=== PATIENT | male | born 1965 | race Caucasian/White ===

== ENCOUNTER → 2020-05-13 12:54 | Outpatient (BNVA) | payer OTHER, SELFPAY | PROVIDERS: PCP Physician Assistant Medical; Visit Provider Nurse Practitioner Family ==

== ENCOUNTER 2020-07-05 09:04 | Day surgery (SDC) | payer OTHER, SELFPAY ==
[2020-07-02 09:55] VITALS: BMI 40.6
--- NOTE | 2020-07-04 09:37 | P.CONAN_ITS ---
Documented by User: Venice Mcbride 07/04/20 09:37 HPI - Anesthesia Eval Consult details Narrative: 54yo M for Upper Endoscopy and Colonoscopy [facility] Past Medical History Medical History Elevated cholesterol GERD (gastroesophageal reflux disease) Sleep apnea Family History Family History Mother Breast cancer Paternal Uncle Prostate cancer Surgical History Surgical History H/O colonoscopy Hx of appendectomy Social History Social History Household Members: Spouse and Children Alcohol intake: never Smoking Status: Never smoker Use of substances other than those prescribed or required for medical reasons: No Advance Directives Information Provided: No Current occupational status: [employer] Allergies Allergy/AdvReac Type Severity Reaction Status Date / Time No Known Allergies Allergy Verified 07/05/20 09:09 Home Medications Medication Instructions Recorded Confirmed Last Taken Type aspirin 81 mg tablet,delayed 81 mg PO DAILY 05/13/20 07/02/20 06/30/20 07:30 History release atorvastatin 40 mg tablet 40 mg PO DAILY 05/13/20 07/02/20 Unknown History Exam Exam Date and Time: July 04, 2020 0937 Height,Weight and Vital Signs: Height 5 ft 9 in Weight 124.738 kg Assessment and Plan Assessment Anesthesia Assessment: Chart Reviewed Documented by User: Ileana Peters 07/05/20 09:42 [facility] Past Medical History Medical History Elevated cholesterol GERD (gastroesophageal reflux disease) Sleep apnea Family History Family History Mother Breast cancer Paternal Uncle Prostate cancer Surgical History Surgical History H/O colonoscopy Hx of appendectomy Social History Social History Household Members: Spouse and Children Alcohol intake: never Smoking Status: Never smoker Use of substances other than those prescribed or required for medical reasons: No Advance Directives Information Provided: No Current occupational status: retired Meds Allergies Allergy/AdvReac Type Severity Reaction Status Date / Time No Known Allergies Allergy Verified 07/05/20 09:09 Home Medications Medication Instructions Recorded Confirmed Last Taken Type aspirin 81 mg tablet,delayed 81 mg PO DAILY 05/13/20 07/02/20 06/30/20 07:30 History release atorvastatin 40 mg tablet 40 mg PO DAILY 05/13/20 07/02/20 Unknown History Exam Airway Mallampati Class: III TM Dist: >3cm Neck ROM: Full Loose/Missing/Broken Teeth: No Heart: RRR Lungs: CTA Assessment and Plan Assessment Anesthesia Assessment: Anesthesia Plan Discussed and Chart Reviewed Final Anesthetic Review NPO: Yes ASA Class: II Final Preanesthetic Review: Consent Obtained/Reviewed and Anes Risks/Benef Reviewed Patient Risk: Low Procedure Risk: Low Anesthetic Plan Anesthetic Plan: MAC: Disposition: Standard PACU
[2020-07-05 09:19] VITALS: BP 121/85; PULSE 70; RESP 20; TEMP 36.7; O2SAT 96
[2020-07-05] MEDS: Lactated Ringers 1,000 ML 100 ML IVCONT (09:36)
--- NOTE | 2020-07-05 10:08 | W.PM.OPN ---
Operative Note Operative Note Date of Service: 07/05/20 Narrative: Pre-op diagnosis: Colon cancer screening, Positive FIT test, GERD Post-op diagnosis: other (GERD, hiatal hernia, esophageal polyp, gastritis, Colon polyps, diverticulosis, hemorrhoids) Procedure: FLEXIBLE TRANSORAL UPPER GASTROINTESTINAL ENDOSCOPY WITH BIOPSIES AND COLONOSCOPY TO CECUM WITH BIOPSIES AND SNARE POLYPECTOMY Consent: Indications for the procedure and potential complications of bleeding, perforation, reaction to medications and missed diagnosis were discussed with the patient and informed consent was obtained. Instrument: Olympus GIF H 190 mid size upper endoscope Monitoring: Vital signs and clinical assessment, continuous EKG monitoring, Pulse oximetry, Carbon Dioxide monitoring and blood pressure monitoring were done throughout the procedure. Procedure: The patient was placed in the left lateral decubitis position and pre-procedure medications were administered and a bite block was placed. The endoscope was inserted into the mouth and advanced under direct vision to the third part of duodenum. A careful inspection was made as the upper endoscope was withdrawn including a retroflexed examination of the proximal stomach; Findings and interventions are described below. Findings: Larynx: Edema of arytenoid cartilages Esophagus: A 7-8 mm benign appearing polyp/nodule in the mid esophagus - removed with a cold bx. GE junction at 39 cms, small hiatal hernia 39 to 40 cms. No esophagitis or [place] Stomach: Moderate diffuse gastric erythema with nodular appearing gastric mucosa. Biopsies were obtained from the body and antrum. Grade 2 flap valve on retroflexed examination of the cardia. Duodenum: Normal bulb and descending duodenum Intervention: Biopsies as noted above COLONOSCOPY PROCEDURE NOTE Consent: Indications for the procedure and potential complications of bleeding, perforation, reaction to medications and missed diagnosis were discussed with the patient and informed consent was obtained. Instrument: Olympus CF H 190 L variable stiffness adult colonoscope Monitoring: Vital signs and clinical assessment, intermittent blood pressure monitoring, continuous EKG monitoring, Pulse oximetry and Carbon Dioxide monitoring were done throughout the procedure. Colon withdrawl time was 25 minutes. Procedure: The patient was placed in the left lateral decubitis position and pre-procedure medications were administered. After a digital rectal examination of the ano-rectum, the video colonoscope was inserted into the rectum and advanced through the colon to the cecum. The colonoscope was slowly withdrawn in a retrograde panoramic fashion and the colon mucosa was carefully examined including a retroflexed view of the rectum. Findings and interventions are described below. Procedure Difficulty: Without difficulty Findings: Terminal Ileum: Distal 10 cm was examined and scattered aphthoid ulcers noted - biopsies were obtained Cecum: 3-4 mm diminutive appearing polyp next to appendiceal orifice removed with the cold biopsyl Ascending Colon: Patchy erythema with scattered aphthoid ulcers - random biopsies were obtained Transverse Colon: A 10-12 mm sessile polyp removed with hot snare Descending Colon: Moderate diverticular Sigmoid Colon: Severe diverticulosis with luminal narrowing Rectum: A 2.5 cms pedunculated polyp (on a short pedicle) removed with a hot snare. A 2nd 4-5 mm sessile polyp removed with the cold biopsy. Ano-rectum: Moderate internal hemorrhoids Colon preparation: Excellent to good after some irrigation Impression and Post Procedure Diagnosis: Impression and Post Procedure Diagnosis: Endoscopy Findings: LARYNX: Changes suggestive of LPRD ESOPHAGUS: A 7-8 mm benign appearing polyp/nodule in the mid esophagus - likely squamous papilloma. GE junction at 39 cms, small hiatal hernia 39 to 40 cms. STOMACH: Nodular gastritis Colonoscopy Findings: Three polyps removed Scattered aphthoid ulcers in the TI - ? Crohn's disease versus NSAID use Random biopsies were obtained from the TI, right and left colon to rule out IBD/microscopic colitis Moderate to severe diverticulosis seen in the left colon Moderate hemorrhoids on retroflexed exam. Plan: Await pathology results Patient has an appointment on 07/09/20 in the GI Clinic with Sunita Castano FNP-BC. Repeat Colonoscopy interval based on path results - in 1-2 years if rectal polyp is adenomatous to check polypectomy site and 10 years if polyps are hyperplastic. Above findings were reviewed with the patient and GERD, colon polyps and diverticulosis handouts were given in the discharge area Surgeon: Cathy Perez MD Anesthesia: MAC (Dr. Peters) Export Administrator: Roman Lee Estimated blood loss (mL): 0 Pathology: other (A. Gastric antrum, B. gastric body, C. esophageal polyp, D. cecal polyp x1, E. TI bx, F. RT colon, G. Left colon, H. SC polyp, I. Rectal polyps.) Condition: stable Disposition: PACU
--- NOTE | 2020-07-05 10:09 | MHC.SHP ---
Pre-Procedural Eval Section A The patient is an INPATIENT: No The History & Physical has been completed within 30 days and I have reviewed it.: No Section B Chief Complaint: Screening, GERD Relevant Family History (Specify if Yes): No Relevant Social History: None Present Medications: see Short Stay Collaborative assessment Medical History: Significant History (GERD, sleep apnea) History of Previous Operations: Relevant previous surgery/procedure and date(s) (History of colonoscopy, status post appendectomy) Allergies: Allergies Allergy/AdvReac Type Severity Reaction Status Date / Time No Known Allergies Allergy Verified 07/05/20 09:09 Review of Systems Sugical H&P ROS: Negative: Constitution, Cardiovascular and Respiratory and Yes, Specify: Gastrointestinal (GERD) Exam Surgical H&P Exam: Normal: Heart, Normal: Lungs, Normal: Extremities and Normal: Abdomen Plan Diagnosis/Plan: Unchanged I have reviewed the history and physical and performed a pertinent physical examination on my patient. No changes have occurred unless specified.
[2020-07-05 11:10] VITALS: BP 128/80; PULSE 69; RESP 18; TEMP 36.2; O2SAT 99
[2020-07-05 11:37] VITALS: BP 128/82; PULSE 64; RESP 18; O2SAT 97
== END 2020-07-05 15:38 | disposition home or self-care (01) ==
PROVIDERS: PCP Physician Assistant Medical; Visit Provider Internal Medicine Gastroenterology
PROC: (CPT 45385; principal; 2020-07-05 10:00)
DX: Z12.11 Encounter for screening for malignant neoplasm of colon (principal); D12.5 Benign neoplasm of sigmoid colon; D12.8 Benign neoplasm of rectum; K63.5 Polyp of colon; K64.8 Other hemorrhoids; K57.30 Diverticulosis of large intestine without perforation or abscess without bleeding; K52.9 Noninfective gastroenteritis and colitis, unspecified; K21.9 Gastro-esophageal reflux disease without esophagitis; K29.50 Unspecified chronic gastritis without bleeding; D13.0 Benign neoplasm of esophagus; K44.9 Diaphragmatic hernia without obstruction or gangrene; G47.33 Obstructive sleep apnea (adult) (pediatric); Z79.82 Long term (current) use of aspirin; Z79.899 Other long term (current) drug therapy; Z99.89 Dependence on other enabling machines and devices
CPT/HCPCS: 45385; 45380; 43239; 88305; 88341; 88342

== ENCOUNTER → 2020-07-09 13:42 | Outpatient (BNVA) | payer OTHER, SELFPAY | PROVIDERS: PCP Physician Assistant Medical; Visit Provider Nurse Practitioner Family ==

== ENCOUNTER → 2020-07-12 12:34 | Outpatient (BNVA) | payer OTHER, SELFPAY | PROVIDERS: PCP Physician Assistant Medical; Visit Provider Nurse Practitioner Family | DX: R19.7 Diarrhea, unspecified (principal) ==

== ENCOUNTER 2020-07-16 14:27 | Outpatient (REF) | payer OTHER, SELFPAY ==
[2020-07-16 16:59] LABS: C Reactive Protein 0.44 mg/dL (< or = 0.50)
[2020-07-16 17:21] LABS: Erythrocyte Sedimentation Rate 8 MM/HR (0-15)
[2020-07-24 08:20] LABS: Prometheus IBD SGI SEE SEPERATE REPORT
[2020-07-24 21:01] LABS: Calprotectin, Fecal 374 mcg/g
== END 2020-07-16 14:28 | disposition home or self-care (01) ==
LOC: HO.HMGCLDS 14:27
PROVIDERS: PCP Physician Assistant Medical; Visit Provider Nurse Practitioner Family
DX: R19.7 Diarrhea, unspecified (principal)
CPT/HCPCS: 36415; 81479; 82397; 83520; 83993; 85652; 86140; 88346; 88350

== ENCOUNTER → 2020-07-24 12:57 | Outpatient (BNVA) | payer OTHER, SELFPAY | PROVIDERS: PCP Physician Assistant Medical; Visit Provider Nurse Practitioner Family ==

== ENCOUNTER → 2020-08-27 13:14 | Outpatient (BNVA) | payer OTHER, SELFPAY | PROVIDERS: Visit Provider Nurse Practitioner Family ==

== ENCOUNTER → 2020-10-02 13:35 | Outpatient (BNVA) | payer OTHER, SELFPAY | PROVIDERS: PCP Physician Assistant Medical; Visit Provider Nurse Practitioner Family ==

== ENCOUNTER → 2021-01-03 12:54 | Outpatient (BNVA) | payer OTHER, SELFPAY | PROVIDERS: PCP Physician Assistant Medical; Referring Provider Physician Assistant Medical; Visit Provider Nurse Practitioner Family ==

== ENCOUNTER → 2022-05-08 08:06 | Outpatient (BNVA) | payer OTHER, SELFPAY | PROVIDERS: PCP Physician Assistant Medical; Visit Provider Nurse Practitioner Family | DX: Z13.89 Encounter for screening for other disorder (principal) ==

== ENCOUNTER 2022-08-28 07:37 | Day surgery (SDC) | payer OTHER, SELFPAY ==
[2022-08-26 12:56] VITALS: BMI 40.2
--- NOTE | 2022-08-27 12:12 | HO.ANESPROP2 ---
Documented by User: Venice Mcbride NP 08/27/22 12:12 HPI - Anesthesia Eval Consult details Narrative: 56yo M for Colonoscopy [facility] Active Problems Active Problems: All Active Problems (Updated 10/11/20 @ 20:20 by Sunita Castano [facility]) Crohn disease (Acute) Tubulovillous adenoma (Acute) Past Medical History Medical History Crohn disease Elevated cholesterol GERD (gastroesophageal reflux disease) Sleep apnea Tubulovillous adenoma Family History Family History Mother Breast cancer Paternal Uncle Prostate cancer Surgical History Surgical History H/O colonoscopy History of esophagogastroduodenoscopy (EGD) Hx of appendectomy Social History Social History Household Members: Spouse and Children Alcohol intake: never Patient Tobacco Use Status: Never used Tobacco Are you DNR?: No Advance Directives: No Advance Directives Information Provided: Yes Nutrition Risks: No Nutritional Risk Current occupational status: retired [employer] Allergies Allergy/AdvReac Type Severity Reaction Status Date / Time No Known Allergies Allergy Verified 05/08/22 08:11 Home Medications Medication Instructions Recorded Confirmed Last Taken Type atorvastatin 40 mg tablet 40 mg PO DAILY 05/13/20 07/02/20 08/26/22 History Exam Exam Date and Time: August 27, 2022 1212 Height,Weight and Vital Signs: Height 5 ft 9 in Weight 123.377 kg Assessment and Plan Assessment Anesthesia Assessment: Chart Reviewed Documented by User: Bradley Abarca MD 08/28/22 08:38 [facility] Past Medical History Medical History Crohn disease Elevated cholesterol GERD (gastroesophageal reflux disease) Sleep apnea Tubulovillous adenoma Family History Family History Mother Breast cancer Paternal Uncle Prostate cancer Family history of problems with anesthesia: No Surgical History Surgical History H/O colonoscopy History of esophagogastroduodenoscopy (EGD) Hx of appendectomy History of Problems with Anesthesia: No Social History Social History Household Members: Spouse and Children Alcohol intake: never Patient Tobacco Use Status: Never used Tobacco Are you DNR?: No Advance Directives: No Advance Directives Information Provided: Yes Nutrition Risks: No Nutritional Risk Current occupational status: retired [employer] Allergies Allergy/AdvReac Type Severity Reaction Status Date / Time No Known Allergies Allergy Verified 05/08/22 08:11 Home Medications Medication Instructions Recorded Confirmed Last Taken Type atorvastatin 40 mg tablet 40 mg PO DAILY 05/13/20 07/02/20 08/26/22 History Exam Airway Mallampati Class: II TM Dist: <=3cm Neck ROM: Full Loose/Missing/Broken Teeth: No Heart: ok Lungs: ok Assessment and Plan Assessment Anesthesia Assessment: Anesthesia Plan Discussed Final Anesthetic Review Family History of Problems with Anesthesia: No History of Problems with Anesthesia: No NPO: Yes ASA Class: III Final Preanesthetic Review: No Changes in Pt Med Stat, Meds/Allgs Chart Reviewed, Consent Obtained/Reviewed and Anes Risks/Benef Reviewed Patient Risk: Intermediate Procedure Risk: Low Anesthetic Plan Anesthetic Plan: MAC: and Agree w/ Assess. and Plan Disposition: Standard PACU
[2022-08-28 07:41] VITALS: BP 150/88; PULSE 61; RESP 20; TEMP 36.3; O2SAT 97
[2022-08-28] MEDS: Lactated Ringers 1,000 ML 100 ML IVCONT (08:09)
--- NOTE | 2022-08-28 09:20 | MHC.SHP ---
Pre-Procedural Eval Section A Date of Service: 08/28/22 The patient is an INPATIENT: No The History & Physical has been completed within 30 days and I have reviewed it.: No Section B Chief Complaint: Screening,Crohn's disease, unspecified, without co Relevant Family History (Specify if Yes): No Present Medications: see Short Stay Collaborative assessment Medical History: Significant History (Crohn disease Elevated cholesterol GERD (gastroesophageal reflux disease) Sleep apnea Tubulovillous adenoma) History of Previous Operations: Relevant previous surgery/procedure and date(s) (H/O colonoscopy History of esophagogastroduodenoscopy (EGD) Hx of appendectomy) Allergies: Allergies Allergy/AdvReac Type Severity Reaction Status Date / Time No Known Allergies Allergy Verified 05/08/22 08:11 Review of Systems Sugical H&P ROS: Negative: Constitution, Cardiovascular, Respiratory and Gastrointestinal Exam Surgical H&P Exam: Normal: Heart, Normal: Lungs, Normal: Extremities and Normal: Abdomen Plan Diagnosis/Plan: Unchanged I have reviewed the history and physical and performed a pertinent physical examination on my patient. No changes have occurred unless specified. Time Spent With Patient Time: Total time managing care of this patient today ____ minutes.
--- NOTE | 2022-08-28 09:27 | W.PM.OPN ---
Operative Note Operative Note Date of Service: 08/28/22 Narrative: COLONOSCOPY TILL CECUM WITH BIOPSIES Pre-op diagnosis: Colon cancer screening, follow-up of colon polyps, Crohn's disease (diagnosed in 06/2020) Post-op diagnosis:? Colon polyp, diverticulosis, hemorrhoids, mild patchy colitis Endoscopist:? Cathy Perez MD Anesthesia:?MAC Consent: Indications for the procedure and potential complications of bleeding, perforation, reaction to medications and missed diagnosis were discussed with the patient and informed consent was obtained. Instrument: Olympus CF H 190 L variable stiffness adult colonoscope Monitoring: Vital signs and clinical assessment, intermittent blood pressure monitoring, continuous EKG monitoring, Pulse oximetry and Carbon Dioxide monitoring were done throughout the procedure. Please see anesthesia flowsheet. Colon withdrawl time was 23 minutes. Procedure: The patient was placed in the left lateral decubitis position and pre-procedure medications were administered. After a digital rectal examination of the ano-rectum, the video colonoscope was inserted into the rectum and advanced through the colon to the cecum. The colonoscope was slowly withdrawn in a retrograde panoramic fashion and the colon mucosa was carefully examined including a retroflexed view of the rectum. Findings and interventions are described below. Procedure Difficulty: Without difficulty Findings: Terminal Ileum: Distal 5 cm was examined and appeared normal (ulcers seen on past colon have healed) Cecum: Friable colon mucosa with pathcy erythema and scattered 1-2 mm aphthoid ulcers in the right, transverse and left colon - random biopsies were obtained. Ascending Colon: Friable colon mucosa with pathcy erythema and scattered 1-2 mm aphthoid ulcers in the right, transverse and left colon Transverse Colon: Friable colon mucosa with pathcy erythema and scattered 1-2 mm aphthoid ulcers in the right, transverse and left colon Descending Colon: Friable colon mucosa with pathcy erythema and scattered 1-2 mm aphthoid ulcers in the right, transverse and left colon Sigmoid Colon: Friable colon mucosa with pathcy erythema and scattered 1-2 mm aphthoid ulcers in the right, transverse and left colon Moderate diverticulosis Rectum: A 4-5 mm sessile polyp - removed with a cold biopsy. Normal appearing rectal mucosa Ano-rectum: Moderate internal hemorrhoids Colon preparation: Good after some irrigation Impression and Post Procedure Diagnosis: Colonoscopy Findings: One small polyp removed Friable colon mucosa with pathcy erythema and scattered 1-2 mm aphthoid ulcers in the right, transverse and left colon - indicative of persistent mild colitis Moderate diverticulosis seen in the left colon Moderate hemorrhoids on retroflexed exam. Plan: Await pathology results Patient has an appointment on 09/03/22 in the GI Clinic with Sunita Castano FNP-BC. Consider increasing mesalamine to 3 tablets daily if colon biopsies confirm colitis. Repeat Colonoscopy interval based on path results - in 5 years if polyps are adenomatous and due to a history of adenomatous colon polyps Above findings were reviewed with the patient and colon polyps and diverticulosis handouts were given in the discharge area
[2022-08-28 10:10] VITALS: BP 110/70; PULSE 51; RESP 18; TEMP 36.1; O2SAT 94
[2022-08-28 10:25] VITALS: BP 127/86; PULSE 54; RESP 18; TEMP 36.7; O2SAT 100
== END 2022-08-28 10:49 | disposition home or self-care (01) ==
PROVIDERS: PCP Physician Assistant Medical; Visit Provider Internal Medicine Gastroenterology
PROC: 0DJD8ZZ Inspection of Lower Intestinal Tract, Via Natural or Artificial Opening Endoscopic (ICD-10-PCS; CPT 45378; principal; 2022-08-28 09:20)
DX: Z12.11 Encounter for screening for malignant neoplasm of colon (principal); Z86.010 Personal history of colon polyps; K62.1 Rectal polyp; K57.30 Diverticulosis of large intestine without perforation or abscess without bleeding; K50.90 Crohn's disease, unspecified, without complications; K64.8 Other hemorrhoids; E78.00 Pure hypercholesterolemia, unspecified; K21.9 Gastro-esophageal reflux disease without esophagitis; G47.30 Sleep apnea, unspecified; Z79.899 Other long term (current) drug therapy; Z99.89 Dependence on other enabling machines and devices
CPT/HCPCS: 45380; 88305

== ENCOUNTER → 2022-09-03 11:24 | Outpatient (BNVA) | payer OTHER, SELFPAY | PROVIDERS: PCP Physician Assistant Medical; Visit Provider Nurse Practitioner Family ==

== ENCOUNTER 2023-02-08 08:43 | Outpatient (AMB) | payer OTHER, SELFPAY ==
[2023-02-08 08:47] VITALS: BP 151/89; PULSE 61; BMI 40.7
--- NOTE | 2023-02-08 08:47 | A.OFFVIS_ITS ---
Intake Vital Signs 02/08/23 08:47 Height 5 ft 9 in Weight 275 lb 9.245 oz BMI 40.7 BP 151/89 H Blood Pressure Location Lt brachial Position Sitting Pulse 61 Intake Visit Reasons: 6month f/u IBS Intake Note: Myles presents in office today as a 6 months follow up of IBS. CC: Patient reports doing fine and denies having any concerns or new GI symptoms today. Applications Instructor Required: No Accompanied by: Self / Same As Patient Allergies No Known Allergies Allergy (Verified 02/08/23 08:49) HPI 6month f/u IBS HPI Details LAST VISIT: Crohn disease As mentioned above in HPI patient does have colitis on biopsy and will need to have mesalamine increase to 3.6 g. Discussed with patient treatment. Other options mentioned. Patient would like to stay with p.o. treatment for now. Currently he has no symptoms. Will continue to monitor and patient will call us if he will have any concerning symptoms. Status post colonoscopy Hyperplastic polyp found. Scattered ulcerated areas found concerning Crohn's. Patient reports that he is in not having any symptoms. Will increase his mesalamine to 3 tablets daily. Patient will return for colonoscopy in 3 years due to previous history of tubular adenoma and tubulovillous adenoma. GERD (gastroesophageal reflux disease) Continue current dose of omeprazole. Discussed with patient avoiding dietary triggers and late night snacking. Staying upright for minimum 3 hours after meals discussed with patient. I will see him in 6 months, sooner on as needed basis. Patient is agreeable to this plan and verbalizes understanding of instructions. He was given the opportunity to ask questions and all questions answered. ? Thank you for allowing me to participate in his care Plan Medications Changed From mesalamine 2.4 grams (2 x 1.2 gram) PO DAILY 180 tabs 4RF K50.90 - Crohn's disease, unspecified, without complications To mesalamine 3.6 grams (3 x 1.2 gram) PO DAILY 270 tabs 4RF K50.90 - Crohn's disease, unspecified, without complications TODAY'S VISIT Patient is here today for follow-up. Patient for reports that he is taking mesalamine daily. Reports that his mood GI concerning issues. Patient denies melena, hematochezia unintentional weight loss or ribbon like stools. Patient denies any GI concerning symptoms. Takes omeprazole daily, denies any dyspepsia, dysphagia or odynophagia. [facility] Medical History Crohn disease Tubulovillous adenoma Sleep apnea Elevated cholesterol GERD (gastroesophageal reflux disease) Surgical History History of esophagogastroduodenoscopy (EGD) Hx of appendectomy H/O colonoscopy Family History Mother Breast cancer Paternal Uncle Prostate cancer Social History Household Members: Spouse and Children Alcohol intake: never Patient Tobacco Use Status: Never used Tobacco Current occupational status: retired Review of Systems Const Denies weight gain and Denies weight loss ENT Reports no additional complaints, Denies dysphagia and Denies odynophagia Card Reports no additional complaints Resp Reports no additional complaints GI Denies abdominal pain, Denies belching, Denies melena, Denies bloating, Denies change in bowel habits, Denies dysphagia, Denies excessive flatus, Denies dyspepsia, Denies heartburn, Denies diarrhea, Denies loose stools, Denies nausea, Denies odynophagia and Denies vomiting Reports no additional complaints Musc Reports no additional complaints Neuro Reports no additional complaints Psych Reports no additional complaints Endo Reports no additional complaints Physical Exam Vital Signs: Last Vital Signs Pulse 61 02/08/23 08:47 BP 151/89 H 02/08/23 08:47 BMI result Body Mass Index 40.7 Const General: healthy appearing, no acute distress and well developed Nutritional Appearance: well nourished Orientation/consciousness: patient oriented x3 HEENT Head: Yes normal to inspection, Yes normocephalic and Yes atraumatic Face and sinus: Yes normal facial exam Mouth: Normal oral and palatal mucosa present Throat: Yes posterior oropharynx normal, Yes tonsils normal and Yes uvula midline Eyes General: appearance normal, both eyes and all related structures Neck Neck: Yes normal visual inspection, Yes full ROM and Yes trachea midline Thyroid: Thyroid normal Resp Effort & Inspection: normal respiratory effort, able to speak in complete sentences, no tracheal deviation and symmetric chest movement Auscultation: clear to auscultation bilaterally Cardio Rate: regular rate Heart sounds: S1 normal heart sound present and S2 normal heart sound present GI Inspection: Yes normal to inspection, No distended and Yes obesity Palpation (GI): Soft to palpation, not firm, nontender and No hepatosplenomegaly present Auscultation: normal bowel sounds General: Yes no CVA tenderness Back/Spine/Pelvis Back: no CVA tenderness Skin General skin exam: elasticity normal, turgor normal and dry skin Neuro General: patient oriented x3 Psych Appearance: grossly normal Mental Status: mental status grossly normal Assessment & Plan Assessment & Plan (1) Crohn disease: Code(s): K50.90 - Crohn's disease, unspecified, without complications Qualifiers: Gastrointestinal tract location: large intestine Digestive disease complication type: without complication Qualified Code(s): K50.10 - Crohn's disease of large intestine without complications (2) GERD (gastroesophageal reflux disease): Code(s): K21.9 - Gastro-esophageal reflux disease without esophagitis Qualifiers: Esophagitis presence: esophagitis presence not specified Qualified Code(s): K21.9 - Gastro-esophageal reflux disease without esophagitis Plan Continue mesalamine current dose. Will check fecal calprotectin. Patient has no symptoms, reports that he never did. Continue taking omeprazole daily. Discussed with patient avoiding dietary triggers and lichen snacking. I will see him in 1 year, sooner on as needed basis. Patient is agreeable to this plan and verbalizes understanding of instructions. He was given the opportunity to ask questions and all questions answered. Thank you for allowing me to participate in his care Orders: Orders Calprotectin, Fecal Today K50.90 - Crohn's disease, unspecified, without complications Coding Level of Care Code Est Pt Level 3 (38874) Diagnoses Crohn's disease of large intestine without complication K50.10 Gastrointestinal tract location: large intestine Digestive disease complication type: without complication Gastroesophageal reflux disease, unspecified whether esophagitis present K21.9 Esophagitis presence: esophagitis presence not specified Time Spent (min) 25 Comment 15 minutes spent with patient and additional 10 minutes spent reviewing his records
== END 2023-02-08 09:10 | disposition home or self-care (01) ==
PROVIDERS: PCP Physician Assistant Medical; Visit Provider Nurse Practitioner Family
DX: K50.10 Crohn's disease of large intestine without complications (principal); K21.9 Gastro-esophageal reflux disease without esophagitis
CPT/HCPCS: 99213

== ENCOUNTER → 2023-02-08 08:43 | Outpatient (BNVA) | payer OTHER, SELFPAY | PROVIDERS: PCP Physician Assistant Medical; Visit Provider Nurse Practitioner Family ==

== ENCOUNTER 2023-04-05 12:27 | Outpatient (REF) | payer OTHER, SELFPAY ==
[2023-04-13 00:18] LABS: Calprotectin, Fecal 212 mcg/g
== END 2023-04-05 12:28 | disposition home or self-care (01) ==
LOC: HO.LNP 12:27
PROVIDERS: Visit Provider Nurse Practitioner Family
DX: K50.90 Crohn's disease, unspecified, without complications (principal)
CPT/HCPCS: 83993

== ENCOUNTER 2024-02-09 08:47 | Outpatient (AMB) | payer OTHER, SELFPAY ==
--- NOTE | 2024-02-09 08:48 | MHC.OFFVIS ---
Vital Signs 02/09/24 08:49 Height 5 ft 9 in Weight 279 lb 1.683 oz BMI 41.2 BP 146/92 H Blood Pressure Location Lt brachial Position Sitting Pulse 66 Pulse Source Pulse Oximeter Pulse Oximetry (%) 99 Oxygen Delivery Method Room Air Intake Visit Reasons: 1 year follow up Intake Note: Myles presents in office today for a scheduled 1 YR FUV. CC; Any changes or new sx since last visit? No significant changes or new concerns since last visit. Any labs or diagnostics since last visit? 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 Will check fecal calprotectin. Patient has no symptoms, reports that he never did. Continue taking omeprazole daily. Discussed with patient avoiding dietary triggers and lichen snacking. I will see him in 1 year, sooner on as needed basis. Patient is agreeable to this plan and verbalizes understanding of instructions. He was given the opportunity to ask questions and all questions answered. ? Thank you for allowing me to participate in his care Orders Orders Calprotectin, Fecal Today K50.90 TODAY'S VISIT Patient is here today for annual visit. Accompanied by his who is a nurse at [employer]. Patient reports that he is taking mesalamine without any issues. Denies any abdominal pain or discomfort. Denies any mucus, melena, hematochezia. His symptoms of acid reflux are suppressed with omeprazole. Patient reports to have good appetite. Discuss previously weight loss, currently patient is fluctuating with weight 265-279. Patient denies any GI concerning symptoms. with patient today and confirms no issues. [facility] Medical History Crohn disease Tubulovillous adenoma Sleep apnea Elevated cholesterol GERD (gastroesophageal reflux disease) Surgical History History of esophagogastroduodenoscopy (EGD) Hx of appendectomy H/O colonoscopy Family History Mother Breast cancer Paternal Uncle Prostate cancer Social History Household Members: Spouse and Children Alcohol intake: never Patient Tobacco Use Status: Never used Tobacco Current occupational status: retired Review of Systems Const Denies weight gain and Denies weight loss ENT Reports no additional complaints, Denies dysphagia and Denies odynophagia Card Reports no additional complaints Resp Reports no additional complaints GI Denies abdominal pain, Denies belching, Denies melena, Denies bloating, Denies change in bowel habits, Denies dysphagia, Denies excessive flatus, Denies dyspepsia, Denies heartburn, Denies diarrhea, Denies loose stools, Denies nausea, Denies odynophagia and Denies vomiting Reports no additional complaints Musc Reports no additional complaints Neuro Reports no additional complaints Psych Reports no additional complaints Endo Reports no additional complaints Physical Exam Vital Signs: Last Vital Signs Pulse 66 02/09/24 08:49 BP 146/92 H 02/09/24 08:49 Pulse Ox 99 02/09/24 08:49 Oxygen Delivery Method Room Air 02/09/24 08:49 BMI result Body Mass Index 41.2 Const General: healthy appearing, no acute distress and well developed Nutritional Appearance: well nourished Orientation/consciousness: patient oriented x3 Resp Effort & Inspection: normal respiratory effort, able to speak in complete sentences, no tracheal deviation and symmetric chest movement Auscultation: clear to auscultation bilaterally Cardio Rate: regular rate GI Inspection: Yes normal to inspection, No distended and Yes obesity Palpation (GI): Soft to palpation, not firm, nontender and No hepatosplenomegaly present Auscultation: normal bowel sounds General: Yes no CVA tenderness Back/Spine/Pelvis Back: no CVA tenderness Skin General skin exam: elasticity normal, turgor normal and dry skin Neuro General: patient oriented x3 Psych Appearance: grossly normal Mental Status: mental status grossly normal Results Reviewed Results Reviewed: Laboratory Tests 04/05/23 11:15 Stool Calprotectin 212 H Assessment & Plan Assessment & Plan (1) Crohn disease: Code(s): K50.90 - Crohn's disease, unspecified, without complications Category: Medical Qualifiers: Gastrointestinal tract location: large intestine Digestive disease complication type: without complication Qualified Code(s): K50.10 - Crohn's disease of large intestine without complications (2) GERD (gastroesophageal reflux disease): Code(s): K21.9 - Gastro-esophageal reflux disease without esophagitis Qualifiers: Esophagitis presence: without esophagitis Qualified Code(s): K21.9 - Gastro-esophageal reflux disease without esophagitis Plan Continue mesalamine. Continue avoiding dietary triggers. Weight loss encouraged. Increase fluid intake and activity. Continue omeprazole. Avoid dietary triggers and late night snacking. Staying upright for minimum 3 hours after meals discussed with patient. Follow-up in 1 year, sooner on as needed basis. He is agreeable to this plan and verbalizes understanding of instructions. He was given the opportunity to ask questions and all questions answered. Thank you for allowing me to participate in his care Coding Level of Care Code Est Pt Level 4 (13384) Complex EM visit Add On G2211 Diagnoses Crohn's disease of large intestine without complication K50.10 Gastrointestinal tract location: large intestine Digestive disease complication type: without complication Gastroesophageal reflux disease without esophagitis K21.9 Esophagitis presence: without esophagitis Time Spent (min) 35 Comment 25 minutes spent with patient and additional 10 minutes spent reviewing his records
[2024-02-09 08:49] VITALS: BP 146/92; PULSE 66; O2SAT 99; BMI 41.2
== END 2024-02-09 09:50 | disposition home or self-care (01) ==
PROVIDERS: PCP Physician Assistant Medical; Visit Provider Nurse Practitioner Family
DX: K50.10 Crohn's disease of large intestine without complications (principal); K21.9 Gastro-esophageal reflux disease without esophagitis
CPT/HCPCS: 99214

== ENCOUNTER → 2024-02-09 08:47 | Outpatient (BNVA) | payer OTHER, SELFPAY | PROVIDERS: PCP Physician Assistant Medical; Visit Provider Nurse Practitioner Family ==

== ENCOUNTER 2025-02-14 07:44 | Outpatient (AMB) | payer OTHER, SELFPAY ==
--- OUTSIDE RECORDS SUMMARY | 2024-10-18 09:45 | XMS_ITS ---
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 Name Role Phone Peña Roach PA-C Primary Care Provider Unava ilBest Aragon Unavailable [phone] Guaman Encounters Encounter Location Date Provider Diagnosis [facility] [address] [place] [id number] 10/18/2024 Best Scott Plan Of Treatment Next Appt Details Provider Name:Best Scott , 04/19/2025 01:45:00 PM, [address] [place] [address], [place], [address], Progress Notes * Myles MONTESDOB:1965 (59 yo M)Acc No.[id number]:10/18/2024 Progress Note Patient: Maxmiilian OCHOAhen Provider: Jazmyn Scott DPM :1965 A ge:58 Y S ex:Male Date:10/18/2024 Address:[address], [place] Pcp:Peña Roach PA-C Subjective: * Chief Complaints: * [address] Guaman[address] * Medical History: Objective: * Vitals: Assessment: Plan: * Treatment: * Images: * The named appointment provid er may or may not be the originator of this progress note, and it is not deemed complete until electronically signed by the appointment provider. Sign off status: Pending * Provider: Jazmyn Scott DPM Date: 0 10/18/2024 Generated for Kristina Ang on: 04/17/2024 08:10 AM EST
--- NOTE | 2025-02-14 08:00 | MHC.OFFVIS ---
Vital Signs 02/14/25 08:06 Height 5 ft 9 in Weight 270 lb BMI 39.9 BP 156/86 H Blood Pressure Location Rt brachial Position Sitting Pulse 60 Pulse Source Pulse Oximeter Pulse Oximetry (%) 94 Oxygen Delivery Method Room Air Intake Visit Reasons: 1 yr follow up Intake Note: Est pt for mgmt of GERD + Crohn's. CC: C/O early satiety episode which lasted x2 weeks. Pt states that he had not been experiencing any additional sx or concerns and that the episodes have not occurred again since then. Also states that he had xray and BA FL through [facility] within the last week or two. Will retrieve these results. 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 Continue avoiding dietary triggers. Weight loss encouraged. Increase fluid intake and activity. Continue omeprazole. Avoid dietary triggers and late night snacking. Staying upright for minimum 3 hours after meals discussed with patient. Follow-up in 1 year, sooner on as needed basis. He is agreeable to this plan and verbalizes understanding of instructions. He was given the opportunity to ask questions and all questions answered. ? Thank you for allowing me to participate in his care TODAY'S VISIT Patient is here today for follow-up. Patient reports that he has been doing fairly well until just few weeks ago patient experienced several days epigastric pain, feeling full. Patient states that he felt like there was a tight band across his upper abdomen for days. Patient reports that he went on a trip to [place] end of December for couple weeks and then when he got back few days later he started to have the pain. Pain reported friend patient for x-ray as well as upper GI. Patient was diagnosed with possible gastritis and endoscopy was recommended. Patient currently is taking omeprazole 40 mg. Does not have acid reflux epigastric pain subsided for the most part. Patient denies nausea or vomiting. Patient denies any GI concerning symptoms. [facility] Medical History Crohn disease Tubulovillous adenoma Sleep apnea Elevated cholesterol GERD (gastroesophageal reflux disease) Surgical History History of esophagogastroduodenoscopy (EGD) Hx of appendectomy H/O colonoscopy Family History Mother Breast cancer Paternal Uncle Prostate cancer Social History Household Members: Spouse and Children Alcohol intake: never Patient Tobacco Use Status: Never used Tobacco Current occupational status: retired Review of Systems Const Denies weight gain and Denies weight loss ENT Reports no additional complaints, Denies dysphagia and Denies odynophagia Card Reports no additional complaints Resp Reports no additional complaints GI Denies abdominal pain, Denies belching, Denies melena, Denies bloating, Denies change in bowel habits, Denies dysphagia, Denies excessive flatus, Denies dyspepsia, Denies heartburn, Denies diarrhea, Denies loose stools, Denies nausea, Denies odynophagia and Denies vomiting Reports no additional complaints Musc Reports no additional complaints Neuro Reports no additional complaints Psych Reports no additional complaints Endo Reports no additional complaints Physical Exam Vital Signs: BMI result Body Mass Index 39.9 Const General: healthy appearing and no acute distress Nutritional Appearance: obese Orientation/consciousness: patient oriented x3 Resp Effort & Inspection: normal respiratory effort, able to speak in complete sentences, no tracheal deviation and symmetric chest movement Auscultation: clear to auscultation bilaterally Cardio Rate: regular rate GI Inspection: Yes normal to inspection, No distended and Yes obesity Palpation (GI): Soft to palpation, not firm, nontender and No hepatosplenomegaly present Auscultation: normal bowel sounds General: Yes no CVA tenderness Back/Spine/Pelvis Back: no CVA tenderness Skin General skin exam: elasticity normal, turgor normal and dry skin Neuro General: patient oriented x3 Psych Appearance: grossly normal Mental Status: mental status grossly normal Assessment & Plan Assessment & Plan (1) Crohn disease: Code(s): K50.90 - Crohn's disease, unspecified, without complications Category: Medical Qualifiers: Gastrointestinal tract location: large intestine Digestive disease complication type: without complication Qualified Code(s): K50.10 - Crohn's disease of large intestine without complications (2) Gastritis: Code(s): K29.70 - Gastritis, unspecified, without bleeding Qualifiers: Gastritis type: unspecified gastritis Gastritis bleeding: without bleeding Chronicity: unspecified Qualified Code(s): K29.70 - Gastritis, unspecified, without bleeding Plan Will send patient for upper endoscopy, possible gastritis was found on upper GI series. Patient will continue taking omeprazole and will start taking famotidine at bedtime. Avoid dietary triggers and late night snacking. List of food to avoid given to patient. Patient will continue taking mesalamine. Increase fluid intake and activity to promote bowel motility. Patient will follow-up after the procedure. He will call us if he will have any GI concerning symptoms. Patient is agreeable to this plan and verbalizes understanding of instructions. He was given the opportunity to ask questions and all questions answered. Thank you for allowing me to participate in his care Orders: Referrals GI Procedure Notification K21.9 - Gastro-esophageal reflux disease without esophagitis Medications: New famotidine (Pepcid) 20 mg PO BEDTIME 30 tabs 8RF K21.9 - Gastro-esophageal reflux disease without esophagitis Coding Level of Care Code Est Pt Level 4 (29337) Complex visit Add On G2211 Diagnoses Crohn's disease of large intestine without complication K50.10 Gastrointestinal tract location: large intestine Digestive disease complication type: without complication Gastritis without bleeding, unspecified chronicity, unspecified gastritis type K29.70 Gastritis type: unspecified gastritis Gastritis bleeding: without bleeding Chronicity: unspecified Time Spent (min) 35 Comment 25 minutes spent with patient and additional 10 minutes spent reviewing his records
[2025-02-14 08:06] VITALS: BP 156/86; PULSE 60; O2SAT 94; BMI 39.9
--- OUTSIDE RECORDS SUMMARY | 2025-02-14 08:09 | XMS_ITS | Patient Health Record ---
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 Name Role Phone Peña Roach PA-C Primary Care Provider Best Morse Unavailable [phone] Allergies No Known Allergies Reason For Referral No Information Medications Medication SIG (Take, Route, Fr equency, Duration) Notes Start Date End Date Status Omeprazole Active Mesalamine Active Atorvastatin Calcium Active Aspirin Low Dose Act megan Immunizations Vaccine Route Administration Date Status Comme nts Influenza Unknown 11/08/2023 Administered Social History Tobacco Use: Social History Observation Description Date Details (start date - stop date) Never Smoker NA - NA Tobacco use other than smoking: Question Answer Notes Are you an other tobacco user? No Tobacco Control (Standard) Question Answer Notes Tobacco use: Nonsmoker Additional Findings: Tobacco non-user Current no nsmoker AUDIT-C (Standard) Question Answer Notes Did you have a drink containing alcohol in the p ast year? No Points 0 Interpretation Negative Problems Problem Type SNOMED Code ICD Code Onset Dates Problem Status W/U Status Risk Notes Problem Plantar fasciitis of left foot (220543265960527 01) Plantar fasciitis of left foot (M72.2) Active confirmed Problem Interstitial myositis (77991505) Interstitial myositis of left foot (M60.172) Active confirmed Vital Signs Height 5ft 9in in 10/11/2024 Weight 270 lbs 10/11/2024 BMI 39.87 kg/m2 10/11/2024 Encounters Encounter Location Date Provider [facility] [address] [phone] 10/11/2024 Best Scott Pain in left foot M79.672 ; Plantar fasciitis of left foot M72.2 ; Calcaneal spur, left foot M77.32 ; Interstitial myositis of left foot M60.172 and Bursitis of left foot M77.52 [facility] [address] [place] [phone] 08/15/2024 Best Scott [facility] [address] 10/11/2024 Best Scott Assessments Encounter Date Diagnosis (ICD Code) Assessment Notes Treatment Notes Treatment Clinical Notes Section Notes 10/11/2024 Pain in left foot (ICD-10 - M79.672) 10/11/2024 Plantar fasciitis of left foot (ICD-10 - M72.2) Patient Educated with: HEEL CORD STRETCHES.pdf (HEEL CORD STRETCHES.pdf) Patient Educated with: RICE THERAPY.pdf (RICE THERAPY.pdf) 10/11/2024 Calcaneal spur, left foot (ICD-10 - M77.32) 10/11/2024 Interstitial myositis of left foot (ICD-10 - M60.172) 10/11/2024 Bursitis of left foot (ICD-10 - M77.52) Plan Of Treatment Pending Test Test Name Order Date X ray : Foot, left 3V 10/11/2024 X ray : Foot, right 3V 12/21/2022 X ray : Foot, right 3V 01/20/2023 Next Appt Details Provider Name:Best Scott , 04/19/2025 01:45:00 PM, [address], [address], Insurance Providers Payer Name Payer Address Payer Phone Subscriber Number Group Number Insured Name Patient Relationship to Insured Coverage Start Date Coverage End Date [employer] ([facility]) [address] [place] [id number] Myles Carrera i Self - patient is the insured Medical (General) History Medical History History ICD Code covid-19 Crohns disease Headaches/Migraines Numbness Reflux ( GERD) Measles Mumps Chicken pox CAD Surgical History Surgery Date(Month/Year) appendectomy 1979 Excision Neuroma, 3rd IS, Right foot
--- OUTSIDE RECORDS SUMMARY | 2025-02-14 08:10 | XMS_ITS | Data Portability ---
Author Organization [facility], Main Office Address [address] [place] [address] Care Team Providers Care Barnworker Groom Name Role Phone ANGELI MCINTYRE Urologist [phone] [facility] Investigation Division Lieutenant MAGALY HUTSON Primary Care Provider [facility] (SIRI KILGORE) Orthopedist MAO DO Pain Management JOHN MONTENEGRO Machine Puller [phone] PAT ZAMORA Grip Assessment Encounter Date Assessment Date Assessment LastModified by Organization Details LastModified Time 01/21/2024 01/21/2024 Discussed with patient the signs/symptom s warranted for a return to office visit and/or an ER visit. Patient understood and agreed with the plan. [email or web address] Not available 01/21/2024 11:38:57 Plan of Treatment Reminders Order Date Submit Date Provider Last Modified By Organization Details Last Modified Time Details Appointments None recorde d. Lab HbA1c (hemogl obin A1c), blood 2024 025 AMADO [facility] (Centralized Electronic Ordering - All Locations), Patient Can Go To The Location Of Their Choice, [address] 06:09:01 BMP, serum or plasma 2024 025 AMADO [facility] (Centralized Electronic Ordering - All Locations), Patient Can Go To The Location Of Their Choice, [id number] 06:09:00 PSA, total, serum or plasma 2023 024 [email or web address] [facility] (Centralized Electronic Ordering - All Locations), Patient Can Go To The Location Of Their Choice, 4 10:47:28 HbA1c (hemogl obin A1c), blood 2023 024 AMADO [facility] (Centralized Electronic Ordering - All Locations), Patient Can Go To The Location Of Their Choice, 5 18:07:29 CMP, serum or plasma 2023 024 [email or web address] [facility] (Centralized Electronic Ordering - All Locations), Patient Can Go To The Location Of Their Choice, 4 10:47:27 CBC w/ auto diff 2023 024 [email or web address] [facility] (Centralized Electronic Ordering - All Locations), Patient Can Go To The Location Of Their Choice, 4 10:47:28 lipid panel, serum 2023 024 [email or web address] [facility] (Centralized Electronic Ordering - All Locations), Patient Can Go To The Location Of Their Choice, 4 10:47:27 CK (creati ne kinase) , total, serum 2023 024 AMADO [facility] (Centralized Electronic Ordering - All Locations), Patient Can Go To The Location Of Their Choice, 5 18:07:28 TSH, ultra-s ensitiv e, serum 2023 024 AMADO [facility] (Centralized Electronic Ordering - All Locations), Patient Can Go To The Location Of Their Choice, 5 18:07:31 Referral nutriti onist/d ietitia n referra l 2024 025 [email or web address] Not available 5 13:10:44 nutriti onist/d ietitia n referra l 2023 024 [email or web address] Not available 4 10:47:59 Procedures None recorde d. Surgeries None recorde d. Imaging XR, abdomen 2024 025 pmadden [facility], [address] [place], [address], 5 11:19:35 RF, upper gastroi ntestin al tract, w/ contras t PO 2024 025 [facility] Centralized Scheduling(Ra diology), [address] [place], [address], 13:00:54 XR, calcane us, 2 or more view 2024 025 [email or web address] [facility], [address] [place], [address], 5 11:10:59 Medication Orders sildena claudia 50 mg tablet 2024 025 [id number], [address] [place], [address], 12:16:10 cephale loida 500 mg capsule 2023 025 [facility] #[id number], [address] [place], [address], 5 11:39:50 Patient Targets Encounter Date Encounter Id Patient Goals Patient Target Last Modified By Organization Details Last Modified Time 07/15/2023 [id number] terminal carman goal of Excess Body Weight Loss % 5 Not available Not available Not available Ongoing of LDL Direct <100 Not available Not available Not available Ongoing of LDL Direct yearly Not available Not available Not available 07/15/2023 [id number] Pt agrees to follow low fat diet, avoid saturated fats , decrease carbohydrate intake to 45 - 50 gm per meal , pt agrees to develop a regular pattern of exercise such as walking 30 minutes a day 3 times a week, Pt will keep a record of exercise and activity level Patient preferences and goals incorporated in plan and updated/modified as needed to reflect progress toward goal. Pt advised and agrees to work on self-monitoring behaviors; begin an appropriate diet for weight loss (such as a low carbohydrate diet), to do moderate exercise (such as walking) for approximately 150 minutes per week; and to identify desirable and timely rewards that will reinforce achievement of specific weight loss goals. pmadden Not available 07/15/2023 09:26:44 08/17/2024 [id number] terminal carman goal of Excess Body Weight Loss % 5 Not available Not available Not available Ongoing of LDL Direct <100 Not available Not available Not available Ongoing of LDL Direct yearly Not available Not available Not available 08/17/2024 [id number] Pt advised and agrees to work on self-monitoring behaviors; begin an appropriate diet for weight loss (such as a low carbohydrate diet), to do moderate exercise (such as walking) for approximately 150 minutes per week; and to identify desirable and timely rewards that will reinforce achievement of specific weight loss goals. Pt agrees to follow low fat diet, avoid saturated fats , decrease carbohydrate intake to 45 - 50 gm per meal , pt agrees to develop a regular pattern of exercise such as walking 30 minutes a day 3 times a week, Pt will keep a record of exercise and activity level Patient preferences and goals incorporated in plan and updated/modified as needed to reflect progress toward goal. edel Not available 08/17/2024 11:52:23 Patient Instructions Encounter Date Encounter Id Patient Instructions Last Modified By Organization Details Last Modified Time 07/15/2023 [id number] Starting a Weight-Loss Plan: Care Instructions pmadden Not available 07/15/2023 09:26:51 Nutrition Referral and Weight Management Follow-up Information pmadden Not available 07/15/2023 09:26:51 Prostate Cancer Screening pmadden Not available 07/15/2023 09:26:51 A healthy lifestyle: care instructions pmadden Not available 07/15/2023 09:26:51 Well Visit 50 to 65: Care Instructions pmadden Not available 07/15/2023 09:26:51 Medications (OTC , herbal therapies, supplements) reviewed and reconciled with patient and or caregiver, including potential side effects, drug interactions, instructions, and the consequences of not taking medication. Reviewed potential barriers to medication adherence, such as side effects from medication or cost of medication. pmadden Not available 07/15/2023 09:15:11 07/26/2024 [id number] Patient will follow up and keep appointment as scheduled. pmadden Not available 07/26/2024 12:44:50 08/17/2024 [id number] Starting a Weight-Loss Plan: Care Instructions pmadden Not available 08/17/2024 12:09:51 Nutrition Referral and Weight Management Follow-up Information pmadden Not available 08/17/2024 12:09:50 Medications (OTC , herbal therapies, supplements) reviewed and reconciled with patient and or caregiver, including potential side effects, drug interactions, instructions, and the consequences of not taking medication. Reviewed potential barriers to medication adherence, such as side effects from medication or cost of medication. pmadden Not available 08/17/2024 12:38:20 02/06/2025 [id number] Follow up if no improvement or if symptoms worsen. 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 Refer ral for Body mass index 40+ - severely obese Referring Physician: Magaly Hutson, Internal Medicine, Encounter Date: 08/17/2024 Results Created Date Observation Date Name Description Value Unit Range Abnormal Flag Note LastModifiedBy Organization Detail LastModifiedTime 07/12/1907/12/2024 CBC WITH DIFFE RENTI AL/PL ATELE T WBC 6.5 x10e3 /uL 3.4-10 .8 normal Not Available [facility] ([facility]) [address] [place], [address], 07/12/2024 18:07:26 07/12/1907/12/2024 CBC WITH DIFFE RENTI AL/PL ATELE T RBC 4.91 x10e6 /uL 4.14-5 .80 normal Not Available [facility] ([facility]) [address] [place], [address], 07/12/2024 18:07:26 07/12/19 25 07/12/2024 CBC WITH DIFFE RENTI AL/PL ATELE T hemoglobin 14.6 g/dL 13.0-1 7.7 normal Not Available [facility] ([facility]) [address] [facility], [place], [address], 07/12/2024 18:07:26 07/12/19 25 07/12/2024 CBC WITH DIFFE RENTI AL/PL ATELE T hematocrit 44.3 % 37.5-5 1.0 normal Not Available [facility] ([facility]) [address] [facility], [place], [address], 07/12/2024 18:07:26 07/12/19 25 07/12/2024 CBC WITH DIFFE RENTI AL/PL ATELE T MCV 90 fL 79-97 normal Not Available [facility] ([facility]) [address] [facility], [place], [address], 07/12/2024 18:07:26 07/12/19 25 07/12/2024 CBC WITH DIFFE RENTI AL/PL ATELE T MCH 29.7 pg 26.6-3 3.0 normal Not Available [facility] ([facility]) [address] [facility], [place], [address], 07/12/2024 18:07:26 07/12/19 25 07/12/2024 CBC WITH DIFFE RENTI AL/PL ATELE T MCHC 33.0 g/dL 31.5-3 5.7 normal Not Available [facility] ([facility]) [address] [facility], [place], [address], 07/12/2024 18:07:26 07/12/19 25 07/12/2024 CBC WITH DIFFE RENTI AL/PL ATELE T RDW 12.3 % 11.6-1 5.4 Not Available [facility] ([facility]) [address] [place], [address], 07/12/2024 18:07:26 07/12/19 25 07/12/2024 CBC WITH DIFFE RENTI AL/PL ATELE T platelets 216 x10e3 /uL 150-45 0 normal Not Available [facility] ([facility]) [address] [facility], [place], [address], 07/12/2024 18:07:26 07/12/19 25 07/12/2024 CBC WITH DIFFE RENTI AL/PL ATELE T neutrophils 60 % not estab. normal Not Available [facility] ([facility]) [address] [facility], [place], [address], 07/12/2024 18:07:26 07/12/19 25 07/12/2024 CBC WITH DIFFE RENTI AL/PL ATELE T lymphs 25 % not estab. normal Not Available [facility] ([facility]) [address] [facility], [place], [address], 07/12/2024 18:07:26 07/12/19 25 07/12/2024 CBC WITH DIFFE RENTI AL/PL ATELE T monocytes 9 % not estab. normal Not Available [facility] ([facility]) [address] [facility], [place], [address], 07/12/2024 18:07:26 07/12/19 25 07/12/2024 CBC WITH DIFFE RENTI AL/PL ATELE T eos 4 % not estab. normal Not Available [facility] ([facility]) [address] [facility], [place], [address], 07/12/2024 18:07:26 07/12/19 25 07/12/2024 CBC WITH DIFFE RENTI AL/PL ATELE T basos 1 % not estab. normal Not Available [facility] ([facility]) [address] [facility], [place], [address], 07/12/2024 18:07:26 07/12/19 25 07/12/2024 CBC WITH DIFFE RENTI AL/PL ATELE T immature cells QUALITY COMPLIANCE CONSULTANT Not Available [facility] ([facility]) [address] [facility], [place], [address], 07/12/2024 18:07:26 07/12/19 25 07/12/2024 CBC WITH DIFFE RENTI AL/PL ATELE T neutrophils (absolute) 4.0 x10e3 /uL 1.4-7. 0 normal Not Available [facility] ([facility]) [address] [place], [address], 07/12/2024 18:07:26 07/12/19 25 07/12/2024 CBC WITH DIFFE RENTI AL/PL ATELE T lymphs (absolute) 1.6 x10e3 /uL 0.7-3. 1 normal Not Available [facility] ([facility]) [address] [place], [address], 07/12/2024 18:07:26 07/12/19 25 07/12/2024 CBC WITH DIFFE RENTI AL/PL ATELE T monocytes(ab solute) 0.6 x10e3 /uL 0.1-0. 9 normal Not Available [facility] ([facility]) [address] [place], [address], 07/12/2024 18:07:26 07/12/19 25 07/12/2024 CBC WITH DIFFE RENTI AL/PL ATELE T eos (absolute) 0.3 x10e3 /uL 0.0-0. 4 normal Not Available [facility] ([facility]) [address] [place], [address], 07/12/2024 18:07:26 07/12/19 25 07/12/2024 CBC WITH DIFFE RENTI AL/PL ATELE T baso (absolute) 0.1 x10e3 /uL 0.0-0. 2 normal Not Available [facility] ([facility]) [address] [place], [address], 07/12/2024 18:07:26 07/12/19 25 07/12/2024 CBC WITH DIFFE RENTI AL/PL ATELE T immature granulocytes 1 % not estab. Not Available [facility] ([facility]) [address] [place], [address], 07/12/2024 18:07:26 07/12/19 25 07/12/2024 CBC WITH DIFFE RENTI AL/PL ATELE T immature grans (abs) 0.0 x10e3 /uL 0.0-0. 1 Not Available [facility] ([facility]) [address] [facility], [place], [address], 07/12/2024 18:07:26 07/12/19 25 07/12/2024 CBC WITH DIFFE RENTI AL/PL ATELE T NRBC QUALITY COMPLIANCE CONSULTANT Not Available [facility] ([facility]) [address] [facility], [place], [address], 07/12/2024 18:07:26 07/12/19 25 07/12/2024 CBC WITH DIFFE RENTI AL/PL ATELE T hematology comments: QUALITY COMPLIANCE CONSULTANT Not Available [facility] ([facility]) [address] [facility], [place], [address], 07/12/2024 18:07:26 07/12/19 25 07/12/2024 COMP. METAB OLIC PANEL (14) glucose 101 mg/dL 70-99 above high normal Not Available [facility] ([facility]) [address] [facility], [place], [address], 07/12/2024 18:07:27 07/12/19 25 07/12/2024 COMP. METAB OLIC PANEL (14) BUN 16 mg/dL 6-24 normal Not Available [facility] ([facility]) [address] [facility], [place], [address], 07/12/2024 18:07:27 07/12/19 25 07/12/2024 COMP. METAB OLIC PANEL (14) creatinine 0.76 mg/dL 0.76-1 .27 normal Not Available [facility] ([facility]) [address] [facility], [place], [address], 07/12/2024 18:07:27 07/12/19 25 07/12/2024 COMP. METAB OLIC PANEL (14) eGFR 104 mL/mi n/1.7 3 >59 normal Not Available [facility] ([facility]) [address] [place], [address], 07/12/2024 18:07:27 07/12/19 25 07/12/2024 COMP. METAB OLIC PANEL (14) BUN/creatini ne ratio 21 9-20 above high normal Not Available [facility] ([facility]) [address] [place], [address], 07/12/2024 18:07:27 07/12/19 25 07/12/2024 COMP. METAB OLIC PANEL (14) sodium 143 mmol/ L 134-14 4 normal Not Available [facility] ([facility]) [address] [place], [address], 07/12/2024 18:07:27 07/12/19 25 07/12/2024 COMP. METAB OLIC PANEL (14) potassium 4.9 mmol/ L 3.5-5. 2 normal Not Available [facility] ([facility]) [address] [place], [address], 07/12/2024 18:07:27 07/12/19 25 07/12/2024 COMP. METAB OLIC PANEL (14) chloride 105 mmol/ L 96-106 normal Not Available [facility] ([facility]) [address] [place], [address], 07/12/2024 18:07:27 07/12/19 25 07/12/2024 COMP. METAB OLIC PANEL (14) carbon dioxide, total 21 mmol/ L 20-29 normal Not Available [facility] ([facility]) [address] [place], [address], 07/12/2024 18:07:27 07/12/19 25 07/12/2024 COMP. METAB OLIC PANEL (14) calcium 9.2 mg/dL 8.7-10 .2 normal Not Available [facility] ([facility]) [address] [place], [address], 07/12/2024 18:07:27 07/12/19 25 07/12/2024 COMP. METAB OLIC PANEL (14) protein, total 7.2 g/dL 6.0-8. 5 normal Not Available [facility] ([facility]) [address] [place], [address], 07/12/2024 18:07:27 07/12/19 25 07/12/2024 COMP. METAB OLIC PANEL (14) albumin 4.4 g/dL 3.8-4. 9 normal Not Available [facility] ([facility]) [address] [place], [address], 07/12/2024 18:07:27 07/12/19 25 07/12/2024 COMP. METAB OLIC PANEL (14) globulin, total 2.8 g/dL 1.5-4. 5 Not Available [facility] ([facility]) [address] [place], [address], 07/12/2024 18:07:27 07/12/19 25 07/12/2024 COMP. METAB OLIC PANEL (14) bilirubin, total 0.4 mg/dL 0.0-1. 2 normal Not Available [facility] ([facility]) [address] [place], [address], 07/12/2024 18:07:27 07/12/19 25 07/12/2024 COMP. METAB OLIC PANEL (14) alkaline phosphatase 91 IU/L 44-121 normal Not Available [facility] ([facility]) [address] [place], [address], 07/12/2024 18:07:27 07/12/19 25 07/12/2024 COMP. METAB OLIC PANEL (14) AST (SGOT) 17 IU/L 0-40 normal Not Available [facility] ([facility]) [address] [place], [address], 07/12/2024 18:07:27 07/12/19 25 07/12/2024 COMP. METAB OLIC PANEL (14) ALT (SGPT) 29 IU/L 0-44 normal Not Available [facility] ([facility]) [address] [place], [address], 07/12/2024 18:07:27 07/12/19 25 07/12/2024 LIPID PANEL cholesterol, total 163 mg/dL 100-19 9 normal Not Available [facility] ([facility]) [address] [place], [address], 07/12/2024 18:07:28 07/12/19 25 07/12/2024 LIPID PANEL triglyceride s 87 mg/dL 0-149 normal Not Available [facility] ([facility]) [address] [place], [address], 07/12/2024 18:07:28 07/12/19 25 07/12/2024 LIPID PANEL HDL cholesterol 44 mg/dL >39 normal Not Available [facility] ([facility]) [address] [place], [address], 07/12/2024 18:07:28 07/12/19 25 07/12/2024 LIPID PANEL VLDL cholesterol philip 16 mg/dL 5-40 Not Available [facility] ([facility]) [address] [place], [address], 07/12/2024 18:07:28 07/12/19 25 07/12/2024 LIPID PANEL LDL chol calc ([facility]) 103 mg/dL 0-99 above high normal Not Available [facility] ([facility]) [address] [place], [address], 07/12/2024 18:07:28 07/12/19 25 07/12/2024 LIPID PANEL LDL calc comment: QUALITY COMPLIANCE CONSULTANT Not Available [facility] ([facility]) [address] [facility], [place], [address], 07/12/2024 18:07:28 07/12/1907/12/2024 CK, TOTAL creatine kinase,total 195 U/L 41-331 normal Not Available [facility] ([facility]) [address] [facility], [place], [address], 07/12/2024 18:07:28 07/12/1907/12/2024 HEMOG LOBIN A1C hemoglobin A1C 5.7 % 4.8-5. 6 above high normal Predi abete s: 5.7 - 6.4 Diabe mauricio: >6.4 Glyce april contr ol for adult s with diabe mauricio: <7.0 Not Available [facility] ([facility]) [address] [facility], [place], [address], 07/12/2024 18:07:29 07/12/1907/12/2024 PROST ATE-S PECIF IC AG prostate specific Ag 0.7 NG/mL 0.0-4. 0 normal Mehdi ECLIA metho dolog y. Accor ding to the Ameri can [employer]rolo g[employer] iatio n, Serum PSA shoul d decre ase and remai n at undet ectab le level s after radic al prost atect cornelius. The AUA defin es bioch emica l recur rence as an initi al PSA value 0.2 ng/mL or great er follo wed by a subse quent confi rmato ry PSA value 0.2 ng/mL or great er. Value s obtai indy with diffe rent assay metho ds or kits canno t be used inter crawford eabroy . Resul ts canno t be inter prete d as absol patria evide nce of the prese nce or absen ce of allyssa rodrigez se. Not Available [facility] ([facility]) [address] [facility], [place], [address], 07/12/2024 18:07:30 07/12/19 25 07/12/2024 TSH RFX ON ABNOR MAL TO FREE T4 TSH 0.789 uIU/m L 0.450- 4.500 normal Not Available [facility] ([facility]) [address] [place], [address], 07/12/2024 18:07:31 02/07/20 25 02/06/2025 BASIC METAB OLIC PANEL (8) glucose 100 mg/dL 70-99 above high normal Not Available [facility] ([facility]) [address] [place], [address], 02/07/2025 06:09:00 02/07/2002/06/2025 BASIC METAB OLIC PANEL (8) BUN 14 mg/dL 6-24 normal Not Available [facility] ([facility]) [address] [place], [address], 02/07/2025 06:09:00 02/07/2002/06/2025 BASIC METAB OLIC PANEL (8) creatinine 0.79 mg/dL 0.76-1 .27 normal Not Available [facility] ([facility]) [address] [place], [address], 02/07/2025 06:09:00 02/07/20 25 02/06/2025 BASIC METAB OLIC PANEL (8) eGFR 102 mL/mi n/1.7 3 >59 normal Not Available [facility] ([facility]) [address] [place], [address], 02/07/2025 06:09:00 02/07/20 25 02/06/2025 BASIC METAB OLIC PANEL (8) BUN/creatini ne ratio 18 9-20 normal Not Available [facility] ([facility]) [address] [place], [address], 02/07/2025 06:09:00 02/07/20 25 02/06/2025 BASIC METAB OLIC PANEL (8) sodium 140 mmol/ L 134-14 4 normal Not Available [facility] ([facility]) [address] [place], [address], 02/07/2025 06:09:00 02/07/20 25 02/06/2025 BASIC METAB OLIC PANEL (8) potassium 4.4 mmol/ L 3.5-5. 2 normal Not Available [facility] ([facility]) [address] [place], [address], 02/07/2025 06:09:00 02/07/20 25 02/06/2025 BASIC METAB OLIC PANEL (8) chloride 102 mmol/ L 96-106 normal Not Available [facility] ([facility]) [address] [place], [address], 02/07/2025 06:09:00 02/07/2002/06/2025 BASIC METAB OLIC PANEL (8) carbon dioxide, total 28 mmol/ L 20-29 normal Not Available [facility] ([facility]) [address] [place], [address], 02/07/2025 06:09:00 02/07/2002/06/2025 BASIC METAB OLIC PANEL (8) calcium 9.4 mg/dL 8.7-10 .2 normal Not Available [facility] ([facility]) [address] [place], [address], 02/07/2025 06:09:00 02/07/2002/06/2025 HEMOG LOBIN A1C hemoglobin A1C 5.7 % 4.8-5. 6 above high normal Predi abete s: 5.7 - 6.4 Diabe mauricio: >6.4 Glyce april contr ol for adult s with diabe mauricio: <7.0 Not Available [facility] ([facility]) [address] [place], [address], 02/07/2025 06:09:01 07/27/1907/26/2024 calca neus min 2 views left Examin ation: Left calcan eus perfor med on 025 Histor y: Reason : PAIN IN L FOOT Findin gs: Latera l and Frausto views of the left calcan eus are submit stacia. There is a planta r calcan eal spur. Ossifi cation of the insert ion of the Achill es tendon is seen. There are no fractu res. The soft tissue s are unrema rkable . IMPRES DWIGHT: Planta r spur. WSN: [id number] Orderi ng Physic esvin: Joe Hutson Dictat ed By: Liliana Fitzgerald MD Dictat ed Date/T cierra: 2:28 pm Review ed By: Liliana Fitzgerald MD Signed By: Liliana Fitzgerald MD Signed Date/T cierra: 2:28 pm Transc ribed By: CSB Transc ribed Date/T cierra: 2:27 pm Patien t Class: Outpat ient [email or web address] [facility] (Outpt Imaging) [address] [place], [address], 08/17/2024 11:39:47 02/09/2002/06/2025 XR, abdom en XR Abdome n AP 1 view supine , 2 images INDICA TION/C LINICA L QUESTI ON: Reason : epigas tric pain COMPAR MICK: None FINDIN GS: The upperm ost abdome n includ ing the diaphr agms are exclud ed from the images . Normal bowel gas patter n. No eviden ce of abnorm al stool retent ion or obstru ction. No gross pneumo perito neum on this supine exam. No appare nt organo megaly or mass. No pathol ogic intra- abdomi nal calcif icatio ns.. No acute bone findin gs. Mild lumbar curve convex left with degene rative change s. IMPRES DWIGHT: Incomp lete covera ge of the upper abdome n. No acute intra- abdomi nal findin gs. WSN: [id number] Orderi ng Physic esvin: Joe Hutson Dictat ed By: Cecy Cline MD Dictat ed Date/T cierra: 7:56 am Review ed By: Cecy Cline MD Signed By: Cecy Cline MD Signed Date/T cierra: 7:56 am Transc ribed By: SIDDHARTH Transc ribed Date/T cierra: 7:53 am Patien t Class: Outpat ient [facility] (Outpt Imaging) [address] , [place], [address], 02/08/2025 11:31:59 02/14/2002/13/2025 xr ugi doubl e contr ast XR UGI Double Contra st INDICA TION: Reason : R68.81 ; Clinic al [facility](s): Other: COMPAR MICK: None FLUORO SCOPY TIME: 1 minute 12 second s EXPOSU RE: 2703.6 uGym2 (Dose Area Produc t) TECHNI QUE: Barium double contra st upper GI examin ation was perfor med by Chucho berry PA-C. FINDIN GS: Esopha janna: Normal in contou r and mucosa l appear ance. Normal esopha geal motili ty, with prompt transi t of liquid barium into the stomac h. Reduci ble axial type hiatal hernia measur ing under 1.5 cm in [facility] vertic al dimens ion is seen. Despit e the use of simple provoc ative maneuv ers, no gastro esopha geal reflux was apprec iated. A 13 mm barium tablet passed unimpe ded into the stomac h. No eviden ce of esopha geal web, narrow ing or outpou gene. No esopha geal obstru ction. Stomac h: Fold thicke lisha of the gastri c antrum is seen. Otherw ise normal contou r motili ty and mucosa l appear ance with prompt emptyi ng into nondil ated duoden um. No gastri c outlet obstru ction. Duoden um: Normal contou r, disten sibili ty and mucosa l appear ance. No eviden ce of duoden al ulcer or scarri ng. The ligame nt of [place] is in the normal locati on. IMPRES DWIGHT: 1. Findin gs sugges tive of antral gastri tis. Follow -up with endosc opy could be consid ered as indica [facility] clinic ally. 2. Small type I hiatal hernia . By unders igning and finali zing the report , the attend ing radiol ogist confir ms he/she has person ally review ed and interp reted the images and agrees with the descri ption of the findin gs. I have person ally review ed the images and I agree with this report . WSN: [id number] Orderi ng Physic esvin: Joe Hutson Dictat ed By: Nita Tomlin Dictat ed Date/T cierra: 11:25 a Review ed By: Saúl Watt MD, V Signed By: Saúl Watt MD, V Signed Date/T cierra: 11:30 am Transc ribed By: SIDDHARTH Transc ribed Date/T cierra: 9:05 am Patien t Class: Outpat ient [facility] (Outpt Imaging) [address] [facility], [place], [address], 02/13/2025 15:22:49 Result Notes Documentation Provider Name and Address Organization Details Recorded Time Xr, Abdomen : XR Abdomen AP 1 view supine, 2 images INDICATION/CLINICAL QUESTION: Reason: epigastric pain COMPARISON: None FINDINGS: The uppermost abdomen including the diaphragms are excluded from the images. Normal bowel gas pattern. No evidence of abnormal stool retention or obstruction. No gross pneumoperitoneum on this supine exam. No apparent organomegaly or mass. No pathologic intra-abdominal calcifications.. No acute bone findings. Mild lumbar curve convex left with degenerative changes. IMPRESSION: Incomplete coverage of the upper abdomen. No acute intra-abdominal findings. WSN: [id number] Ordering Physician: Magaly Hutson Dictated By: Cristino Acuna MD Dictated Date/Time: 02/08/25 7:56 am Reviewed By: Cristino Acuna MD Signed By: Cristino Acuna MD Signed Date/Time: 02/08/25 7:56 am Transcribed By: SIDDHARTH Transcribed Date/Time: 02/08/25 7:53 am Patient Class: Outpatient Magaly Hutson PA-C [address] [facility] [address], [place], [address], [facility] 02/08/2025 11:20:18 Problems Name Problem SNOMED Code Status Onset Date Resolution Date Notes Provider Name and Address Organization Details Recorded Time Anxiety disorder 370217628 Active Alecia portillo [facility] 0 13:32:08 Patient status finding [id number] Completed 04/02/2017 Karlee portillo [facility] 8 09:19:21 Cough [id number] [facility] 09:[facility] Elevated blood-pr essure reading without diagnosi s of hyperten dwight 361063687 Completed 04/05/2018 Magaly Hutson PA-C [address] [facility] [address], [place], [address] , [facility] 9 09:18:12 Follow-u p encounte r Completed [facility]/02[facility]2017 [facility] 8 09:19:40 Impotenc e of organic origin Active Aleciaanastacio portillo, [facility] 0 13:32:08 Gastroes ophageal reflux disease 937409597 Active Aleciaanastacio portillo, [facility] 0 13:32:08 Hyperlip idemia 55153175 Active Alecia Ornelas null, [facility] 0 13:32:08 Neck pain 57324646 Com[facility]02[facility]2017 [facility] 8 09:21:03 Examinat ion for suspecte d mental disorder Completed 04/05/2018 Magaly Hutson PA-C [address] [facility] [address], [place], [address] , [facility] 9 09:17:43 Paronych ia of finger 772645683 Completed 04/05/2018 Magaly Hutson PA-C [address] [facility] [address], [place], [address] , [facility] 9 09:19:21 Obstruct megan sleep apnea syndrome 23823983 Active Aleciaanastacio portillo, [facility] 0 13:32:08 Eruption 620907188 Completed 04/05/2018 Magaly Hutson PA-C [address] [facility] [address], [place], [address] , [facility] 9 09:17:47 Changes in skin texture 480773906 Completed 04/05/2018 Magaly Hutson PA-C [address] [facility] [address], [place], [address] , [facility] 9 09:17:51 Carpal tunnel syndrome 03162855 Active Alecia Ornelasanastacio portillo, [facility] 0 13:32:08 Allergic rhinitis 14043960 Active Aleciaanastacio Ornelas [facility], [facility] 0 13:32:08 Adult health examinat ion Completed 04/02/2017 Karlee portillo [facility] 8 09:19:30 Pain in limb 27456556 Completed 04/02/2017 Karlee portillo, [facility] 8 09:21:09 Headache 30142291 Completed 04/02/2017 Karlee portillo, [facility] 8 09:19:25 Disorder of eyelid 04497657 Active Alecia Ornelasanastacio portillo, [facility] 0 13:32:08 Candidia sis of skin 35330698 Active Alecia Ornelas null, [facility] 0 13:32:08 Sinusiti s 53850362 Completed 04/05/2018 Magaly Hutson PA-C [address] [facility] [address], [place], [address] , [facility] 9 09:17:54 Motion sickness 25667712 Active Alecia portillo, [facility] 0 13:32:08 Eustachi an tube disorder 67665493 Active Alecia Ornelas null, [facility] 0 13:32:08 Thoracic neuritis 53520227 Active Alecia Ornelas null, [facility] 0 13:32:08 Pain of hip region 88642250 Completed 04/02/2017 Karlee portillo, [facility] 8 09:22:02 Pain of elbow region 04874129 Completed 04/02/2017 Karlee portillo, [facility] 8 09:21:49 Onelia calzada 905257923 Completed 04/05/2018 Magaly Hutson PA-C [address], [place], [address] , [facility] 9 09:18:18 Acute secretor y otitis media 837728355 Completed 200709/26/2013 IMPRESSI ON: BILAT, RED WITH EFFUSION , TX THIS AND SINUSITI S; RECORDED 11/04/19 08 10:10AM BY AMANDA VERGARA ON/SIMONE Hutson PA-C [address], [place], [address] , [facility] 6 11:57:29 Acute secretor y otitis media 957983083 Completed 200710/16/2013 IMPRESSI ON: BILAT, RED WITH EFFUSION , TX THIS AND SINUSITI S; RECORDED 11/04/19 08 10:10AM BY AMANDA VERGARA ON/SIMONE Hutson PA-C [address], [place], [address] , [facility] 6 11:57:29 Screenin g for malignan t neoplasm of colon Completed 200809/26/2013 RECORDED 04/06/19 09 8:48AM BY ALEX VERGARAATI ON/ADDEN DUM Reina Hutson PA-C [address], [place], [address] , [facility] 6 11:57:29 Urgent desire to urinate 29842503 Completed 200809/26/2013 RECORDED 04/06/19 09 8:48AM BY ALEX VERGARAATI ON/ADDEN DUM Reina Hutson PA-C [address], [place], [address] , [facility] 6 11:57:29 Screenin g for malignan t neoplasm of colon Completed 200810/16/2013 RECORDED 04/06/19 09 8:48AM BY YANI CLEMENT, ALEXATI ON/ADDEN DUM Reina Hutson PA-C [address], [place], [address] , [facility] 6 11:57:29 Urgent desire to urinate 43046195 Completed 200810/16/2013 RECORDED 04/06/19 09 8:48AM BY AMANDA VERGARA ON/ADDEN DUM Reina Hutson PA-C [address], [place], [address] , [facility] 6 11:57:29 Glucose level outside referenc e range 985485281 Completed 201109/26/2013 RECORDED 12/07/19 12 8:54AM BY MANUEL BUTLER MA, ALEXATI ON/ADDEN DUM Reina Hutson PA-C [address], [place], [address] , [facility] 6 11:57:29 Acute sinusiti s 40020946 Completed 201109/26/2013 RECORDED 12/07/19 12 8:54AM BY MANUEL BUTLER MA, AMANDA ON/Valued Relationshipsaric Gordonden [facility] [address] [facility] [address], [place], [address] , [facility] 6 11:57:29 Acute upper respirat ory infectio n 47443612 Completed 201109/26/2013 IMPRESSI ON: UR SXS X PAST THREE DAYS, NO FEVERS, NON FOCAL EXAM. ADVISED RE VIRAL, NEEDS MORE TIME. SX MANAGEME NT, REST AND INCREASE FLUIDS. CALL OFFICE PRN.; RECORDED 12/07/19 12 8:54AM BY MANUEL BUTLER MA, AMANDA ON/Valued Relationshipsktargenis Gordonden MNLecereC [address] [facility] [address], [place], [address] , [facility] 6 11:57:29 Cellulit is 795975737 Completed 201109/26/2013 STORY: RIGHT LEG; RECORDED 12/07/19 12 8:54AM BY MANUEL BUTLER MA, AMANDA ON/[facility] Reina Hutson [facility] [address] [facility] [address], [place], [address] , [facility] 6 11:57:29 Chest pain 38675792 Completed 201109/26/2013 STORY: PT WAS SEEN AT THE HOSPITAL FOR CHEST PAIN AND WAS GIVEN AN ECHO, AND STRESS TEST WHICH ALL CAME BACK NORMAL. PT IS FEELING BETTER AND WILL SCHEDULE AN APPT TO BE SEEN BY MGD AFTER LABS ARE DRAWN. MEDS ARE RECONCIL ED.; RECORDED 12/07/19 12 8:54AM BY MANUEL BUTLER MA, AMANDA ON/LinQpayANUPAM [facility] Re[facility]son [facility] [address] [facility] [address], [place], [address] , [facility] 6 11:57:29 Dysfunct ion of eustachi an tube 36945585 Completed 201109/26/2013 IMPRESSI ON: NORMAL EXAM TODAY. ADVISED PT TO CONTINUE WITH ANTIHIST , ESTRELLA PIZANO. WILL SEE ENT NEXT WEEK, TO CALL ME SOONER PRN.; RECORDED 12/07/19 12 8:54AM BY MANUEL BUTLER MA, ANNOTATI ON/ADDEN DUM Reina Doc PA-C [address], [place], [address] , [facility] 6 11:57:29 Headache 13326112 Completed 201109/26/2013 RECORDED 12/07/19 12 8:54AM BY MANUEL BUTLER MA, AMANDA ON/ADDEN DUM Karlee portillo, [facility] 8 09:19:25 Pain in limb 81307985 Completed 201109/26/2013 RECORDED 12/07/19 12 8:54AM BY MANUEL BUTLER MA, ALEXATI ON/ADDEN DUM Karlee portillo, [facility] 8 09:21:09 Onychia of finger 79609633 Completed 201109/26/2013 RECORDED 12/07/19 12 8:54AM BY MANUEL BUTLER MA, AMANDA ON/ADDEN DUM Reinaargenis Hutson PA-C [address], [place], [address] , [facility] 6 11:57:29 Disorder of upper respirat ory system Completed 201109/26/2013 RECORDED 12/07/19 12 8:54AM BY MANUEL BUTLER MA, AMANDA ON/ADDEN DUM Reina Doc PA-C [address], [place], [address] , [facility] 6 11:57:29 Peripher al venous insuffic iency 98814242 Completed 201109/26/2013 RECORDED 12/07/19 12 8:54AM BY MANUEL BUTLER MA, ANNOTATI ON/ADDEN DUM Reina Hutson PA-C [address], [place], [address] , [facility] 6 11:57:29 Glucose level outside referenc e range 686039688 Completed 201110/16/2013 RECORDED 12/07/19 12 8:54AM BY MANUEL BUTLER MA, AMANDA ON/ADDEN DUM Reina Hutson PA-C [address], [place], [address] , [facility] 6 11:57:29 Acute sinusiti s 44457738 Completed 201110/16/2013 RECORDED 12/07/19 12 8:54AM BY MANUEL BUTLER MA, AMANDA ON/ADDEN DUM Reina Hutson PA-C [address] [facility] [address], [place], [address] , [facility] 6 11:57:29 Acute upper respirat ory infectio n 38444727 Completed 201110/16/2013 IMPRESSI ON: UR SXS X PAST THREE DAYS, NO FEVERS, NON FOCAL EXAM. ADVISED RE VIRAL, NEEDS MORE TIME. SX MANAGEME NT, REST AND INCREASE FLUIDS. CALL OFFICE PRN.; RECORDED 12/07/19 12 8:54AM BY MANUEL BUTLER MA, AMANDA ON/SIMONE DUM Reina Hutson PA-C [address] [facility] [address], [place], [address] , [facility] 6 11:57:29 Cellulit is 854247792 Completed 201110/16/2013 STORY: RIGHT LEG; RECORDED 12/07/19 12 8:54AM BY MANUEL BUTLER MA, AMANDA ON/CHRISTINAEN DUM Reina Hutson PA-C [address] [facility] [address], [place], [address] , [facility] 6 11:57:29 Chest pain 58677612 Completed 201110/16/2013 STORY: PT WAS SEEN AT THE HOSPITAL FOR CHEST PAIN AND WAS GIVEN AN ECHO, AND STRESS TEST WHICH ALL CAME BACK NORMAL. PT IS FEELING BETTER AND WILL SCHEDULE AN APPT TO BE SEEN BY MGD AFTER LABS ARE DRAWN. MEDS ARE RECONCIL ED.; RECORDED 12/07/19 12 8:54AM BY MANUEL BUTLER MA, ANNOTPUSHPA ON/ADDEN DUM Reina Hutson PA-C [address], [place], [address] , [facility] 6 11:57:29 Dysfunct ion of eustachi an tube 50295286 Completed 201110/16/2013 IMPRESSI ON: NORMAL EXAM TODAY. ADVISED PT TO CONTINUE WITH ANTIHIST , ESTRELLA PIZANO. WILL SEE ENT NEXT WEEK, TO CALL ME SOONER PRN.; RECORDED 12/07/19 12 8:54AM BY MANUEL BUTLER MA, ANNOTPUSHPA ON/ADDEN DUM Reina Hutson PA-C [address], [place], [address] , [facility] 6 11:57:29 Headache 17278679 Completed 201110/16/2013 RECORDED 12/07/19 12 8:54AM BY MANUEL BUTLER MA, AMANDA ON/ADDEN JULIO CÉSAR Serrano MA [facility] 8 09:19:25 Onychia of finger 97324497 Completed 201110/16/2013 RECORDED 12/07/19 12 8:54AM BY MANUEL BUTLER MA, ANNOTATI ON/ADDEN DUM Reina Hutson PA-C [address], [place], [address] , [facility] 6 11:57:29 Disorder of upper respirat ory system Completed 201110/16/2013 RECORDED 12/07/19 12 8:54AM BY MANUEL BUTLER MA, AMANDA ON/SIMONE DUM Reina Hutson PA-C [address], [place], [address] , [facility] 6 11:57:29 Peripher al venous insuffic iency 21723951 Completed 201110/16/2013 RECORDED 12/07/19 12 8:54AM BY MANUEL BUTLER MA, ANNOTATI ON/ADDEN DUM Reina Hutson PA-C [address], [place], [address] , [facility] 6 11:57:29 Conjunct ivitis 5487710 Completed 201209/26/2013 RECORDED 03/23/19 13 9:52AM BY MANUEL BUTLER MA, AMANDA ON/ADDEN DUM Reina Hutson PA-C [address], [place], [address] , [facility] 6 11:57:29 Hemorrha ge of rectum and anus 796923028 Completed 201209/26/2013 RECORDED 03/23/19 13 9:52AM BY MANUEL BUTLER MA, ANNOTPUSHPA ON/ADDEN DUM Reina Hutson PA-C [address], [place], [address] , [facility] 6 11:57:29 Chronic rhinitis 51541414 Completed 201209/26/2013 STORY: STABLE STATUS, CONTINUE CURRENT PLAN.; RECORDED 03/23/19 13 9:52AM BY MANUEL BUTLER MA, AMANDA ON/ADDEN DUM Reina Hutson PA-C [address], [place], [address] , [facility] 6 11:57:29 Conjunct ivitis 0702205 Completed 201210/16/2013 RECORDED 03/23/19 13 9:52AM BY MANUEL BUTLER MA, ANNOTPUSHPA ON/ADDEN DUM Reina Hutson PA-C [address], [place], [address] , [facility] 6 11:57:29 Hemorrha ge of rectum and anus 406253852 Completed 201210/16/2013 RECORDED 03/23/19 13 9:52AM BY MANUEL BUTLER MA, ALEXATI ON/ADDEN DUM Reina Doc [facility] [address], [place], [address] , [facility] 6 11:57:29 Chronic rhinitis 75707613 Completed 201210/16/2013 STORY: STABLE STATUS, CONTINUE CURRENT PLAN.; RECORDED 03/23/19 13 9:52AM BY MANUEL BUTLER MA, AMANDA ON/ADDEN DUM Reina Doc [facility] [address], [place], [address] , [facility] 6 11:57:29 Patient status finding 959764236 Completed 201209/26/2013 RECORDED 09/30/19 13 8:31AM BY MANUEL BUTLER MA, ALEXATI ON/ADDEN DUM Karlee Serrano MA null, [facility] 8 09:19:21 Adult health examinat ion Completed 201209/26/2013 RECORDED 09/30/19 13 8:31AM BY MANUEL BUTLER MA, ANNOTATI ON/ADDEN DUM Karlee Serrano MA null, [facility] 8 09:19:30 Adult health examinat ion Completed 201210/16/2013 RECORDED 09/30/19 13 8:31AM BY MANUEL BUTLER MA, ANNOTATI ON/ADDEN DUM Karlee Maggie LOMELI null, [facility] 8 09:19:30 Disorder of sweat gland 01346636 Completed 201209/26/2013 RECORDED 12/07/19 13 6:59AM BY LISA RODRIGUEZ I, ALEXATI ON/ADDEN DUM Reina Doc [facility] [address], [place], [address] , [facility] 6 11:57:29 Malaise and fatigue 549880984 Completed 201209/26/2013 RESOLVED DATE: 12/07/19 13; RECORDED 12/07/19 13 6:59AM BY ALEX ENGLISHATI ON/ADDEN DUM Reina Doc PA-C [address], [place], [address] , [facility] 6 11:57:29 Influenz a vaccine needed 12487934076 06 Completed 201209/26/2013 RECORDED 12/07/19 13 8:30AM BY JOCE LOYD MA, OFFICE VISIT Reina SAINI-C [address] [facility] [address], [place], [address] , [facility] 6 11:57:29 Obstruct megan sleep apnea syndrome 36693766 Completed 201209/26/2013 RECORDED 12/07/19 13 6:59AM BY AMANDA ENGLISH ON/ADDEN DUM Reina Doc PA-C [address] [facility] [address], [place], [address] , [facility] 6 11:57:29 Disorder of sweat gland 52542020 Completed 201210/16/2013 RECORDED 12/07/19 13 6:59AM BY AMANDA ENGLISH ON/ADDEN DUM Reina Doc SAINI-C [address], [place], [address] , [facility] 6 11:57:29 Malaise and fatigue 861105864 Completed 201210/16/2013 RESOLVED DATE: 12/07/19 13; RECORDED 12/07/19 13 6:59AM BY ALEX ENGLISHATI ON/ADDEN DUM Reina Doc PA-C [address] [facility] [address], [place], [address] , [facility] 6 11:57:29 Influenz a vaccine needed 32213185196 06 Completed 201210/16/2013 RECORDED 12/07/19 13 8:30AM BY JOCE LOYD MA, OFFICE VISIT Reina Hutson PA-C [address] [facility] [address], [place], [address] , [facility] 6 11:57:29 Allergic rhinitis 23416399 Completed 201309/26/2013 STORY: ZETONA NASAL SPRAY/ ALLERGIS T WILL PRESCRIB E; RECORDED 03/14/19 14 4:31PM BY BARB ZAZUETA MA, ANNOTATI ON/ADDEN DUM Reina Hutson PA-C [address] [facility] [address], [place], [address] , [facility] 6 11:57:29 Edema [id number] Completed 201309/26/2013 STORY: BENIGN VENOUS STASIS; RECORDED 03/14/19 14 4:31PM BY BARB ZAZUETA MA, ANNOTATI ON/ADDEN DUM Reina Hutson PA-C [address] [facility] [address], [place], [address] , [facility] 6 11:57:29 Follow-u p encounte r Completed 201309/26/2013 RECORDED 03/14/19 14 4:31PM BY BARB ZAZUETA MA, ANNOTATI ON/ADDEN DUM Karlee Serrano MA [facility] 8 09:19:40 Erythema tous conditio n Completed 201309/26/2013 RECORDED 03/14/19 14 4:31PM BY BARB ZAZUETA MA, ANNOTATI ON/ADDEN DUM Reina Hutson PA-C [address] [facility] [address], [place], [address] , [facility] 6 11:57:29 Edema [id number] Completed 201310/16/2013 STORY: BENIGN VENOUS STASIS; RECORDED 03/14/19 14 4:31PM BY BARB ZAZUETA MA, ANNOTATI ON/ADDEN DUM Reina Hutson PA-C [address], [place], [address] , [facility] 6 11:57:29 Erythema tous conditio n Completed 201310/16/2013 RECORDED 03/14/19 14 4:31PM BY BARB ZAZUETA MA, ANNOTATI ON/ADDEN DUM Reina Hutson PA-C [address], [place], [address] , [facility] 6 11:57:29 Chronic sinusiti s 08958141 Completed 201309/26/2013 IMPRESSI ON: .; RECORDED 04/25/19 14 10:27AM BY BARB ZAZUETA MA, ANNOTATI ON/ADDEN DUM Reina Doc PA-C [address], [place], [address] , [facility] 6 11:57:29 Dermatop hytosis of the body Completed 201309/26/2013 STORY: PERINEUM ; RECORDED 04/25/19 14 10:27AM BY BARB ZAZUETA MA, ANNOTATI ON/ADDEN DUM Reina Doc PA-C [address], [place], [address] , [facility] 6 11:57:29 Chronic sinusiti s 61732412 Completed 201310/16/2013 IMPRESSI ON: .; RECORDED 04/25/19 14 10:27AM BY BARB ZAZUETA MA, ANNOTATI ON/ADDEN DUM Reina Hutson PA-C [address], [place], [address] , [facility] 6 11:57:29 Dermatop hytosis of the body Completed 201310/16/2013 STORY: PERINEUM ; RECORDED 04/25/19 14 10:27AM BY BARB ZAZUETA MA, ANNOTATI ON/ADDEN DUM Reinaaric Hutson PA-C [address], [place], [address] , [facility] 6 11:57:29 Follow-u vito lopez r Completed 201310/16/2013 RECORDED 07/29/19 14 9:35AM BY MANUEL BUTLER MA, ANNOTATI ON/ADDEN DUM Karlee Serrano MA null, [facility] 8 09:19:40 Hyperpla jethro of prostate 688319180 Active 2017 Alecia portillo, [facility] 0 13:32:08 Prostati tis 3043667 Completed 201704/05/2018 Magaly Hutson PA-C [address], [place], [address] , [facility] 9 09:19:32 Low back pain 516920570 Active 2018 Aleciaanastacio Ornelas null, [facility] 0 13:32:08 Benign prostati c hyperpla jethro without outflow obstruct ion 163626306 Completed 201808/17/2024 Rani Allison null, [facility] 5 11:49:04 Seborrhe ic dermatit is 12615838 Active 2018 Alecia Ornelas null, [facility] 0 13:32:08 Severe obesity 37217582677 104 Completed 201807/08/2022 Magaly Hutson PA-C [address], [place], [address] , [facility] 3 11:00:27 Seasonal allergic rhinitis 343042125 Active 2019 Aleciaanastacio Ornelas null, [facility] 0 13:32:08 Pain of left shoulder joint 58742260876 465688 Active 2019 Aleciaanastacio portillo [facility] 0 13:32:08 Vitamin D deficien cy 15258847 Active 2019 Alecia Ornelas lindsey, [facility] 0 13:32:08 Family history of malignan t neoplasm of prostate 102308407 Active 2019 Alecia Ornelas lindsey, [facility] 0 13:32:08 Pain of joint of ankle 814783793 Active 2019 Magaly Hutson PA-C [address] [address], [place], [address] , [facility] 0 09:58:36 Knee pain Active 2019 Magaly Hutson PA-C [address] [address], [place], [address] , [facility] 0 09:58:40 Chronic back pain 655565642 Active 2019 Magaly Hutson PA-C [address] [address], [place], [address] , [facility] 0 09:58:45 Body mass index 40+ - severely obese 053040094 Active 2019 Magaly Hutson PA-C [address] [address], [place], [address] , [facility] 0 09:58:51 COVID-19 410368215 Completed 201905/06/2020 Removal Reason: Problem marked historic al by user pmadden from the COVID-19 watch flag Magaly Hutson PA-C [address] 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 2021 Magaly Hutson PA-C [address], [place], [address] , [facility] 2 11:17:03 Cervical radiculi tis 26448355 Active 2021 Magaly Hutson PA-C [address], [place], [address] , [facility] 2 17:07:39 Lumbosac ral radiculi tis [id number] Active 2021 Magaly Hutson PA-C [address], [place], [address] , [facility] 2 10:28:48 Edema of lower extremit y [id number] Active 2022 Magaly Hutson PA-C [address], [place], [address] , [facility] 3 10:44:23 Cellulit is of lower limb 031193033 Active 2022 Magaly Hutson PA-C [address], [place], [address] , [facility] 3 10:44:57 Family history of aneurysm of blood vessel of brain [id number] 366427 Active 2024 Magaly Hutson PA-C [address], [place], [address] , [facility] 5 12:54:57 Primary erectile dysfunct ion 961892108 Active 2024 Rani portillo [facility] 5 11:20:13 Pain of left heel [id number] 09825 Active 2024 Rani portillo [facility] 5 11:20:13 Problem Notes None recorded. Procedures Surgical History Date Name Laterality Status Provider Name and Address Organization Details Recorded Time 3 Colonoscopy completed Trudy Adrián [facility] 08/28/2022 15:51:04 0 Appendectomy completed Maryjane Johsnton MA [facility] 05/06/2020 08:49:35 Appendectomy completed Karlee Serrano [facility] 11/07/2015 10:05:50 Imaging Results None recorded. Procedure Notes None recorded. Medical Equipment None Reported. Allergies No known drug allergies Medications Name Sig Start Date Stop Date Status Note LastModified by Organization Details LastModified Time cyclobenz aprine 10 mg tablet Take 1 tablet every day by oral route for 30 days. 05/05 completed prn back pain Not Available Not Available Not Available amoxicill in 500 mg capsule TAKE 1 CAPSULE 4 TIMES DAILY FOR 7 DAYS 02/05 completed Not Available Not Available Not Available azelastin e 0.05 % eye drops 08/27 completed Not Available Not Available Not Available prednison e 10 mg tablet 08/09 completed Not Available Not Available Not Available doxycycli ne hyclate 100 mg capsule TWO TIMES DAILY 12/08 completed RECORDED 01/28/20 11 10:30AM BY MYLA ROACH MA, MEDICATI ON AUTO-TORY CTIVATIO N; Not Available Not Available Not Available atorvasta tin 20 mg tablet Take 20 mg by oral route. 12/31 completed Not Available Not Available Not Available sildenafi l 50 mg tablet TAKE ONE - two TABLETs BY MOUTH ONCE DAILY prn 2024 active Not Available Not Available Not Avai lable cetirizin e 10 mg tablet one tab daily 04/15 completed RECORDED 01/27/20 13 11:41AM BY AMANDA DANIELS ON/SIMONE DUM; Not Available Not Available Not Available atorvasta tin 10 mg tablet TAKE 1 TABLET BY MOUTH EVERY DAY active Not Available Not Available No t Available azithromy satish 250 mg tablet QD 04/05 completed Not Available Not Available Not Available ofloxacin 0.3 % eye drops INSTILL 1 DROP INTO RIGHT EYE TWICE A DAY 08/17 completed Not Available Not Available Not Available benzonata te 200 mg capsule THREE TIMES DAILY 03/19 completed Not Available Not Available Not Available meloxicam 15 mg tablet 1 po qd prn 10/17 completed Not Available Not Available Not Available prednison e 20 mg tablet 3 tabs daily 03/19 completed Not Available Not Available Not Available simvastat in 10 mg tablet QD active RECORDED 07/28/19 11 7:36AM BY LESA HOLBROOK MD, AMANDA ON/CHRISTINA DUM; Not Available Not Available Not Available prednison e 5 mg tablet 10/17 completed Not Available Not Available Not Available clobetaso l 0.05 % topical cream APPLY A THIN LAYER TO THE AFFECTED AREA(S) BY TOPICAL ROUTE 2 TIMES PER DAY 10/17 completed Not Available Not Available Not Available clindamyc in HCl 150 mg capsule TAKE 1 CAPSULE BY MOUTH 4 TIMES A DAY FOR 1 WEEK 07/26 completed Not Available Not Available Not Available sulfameth oxazole 800 mg-trimet hoprim 160 mg tablet TAKE 1 TABLET BY MOUTH TWICE DAILY 01/08 completed Not Available Not Available Not Available omeprazol e 40 mg capsule,d elayed release TAKE 1 CAPSULE BY MOUTH EVERY DAY active Not Available Not Available No t Available aspirin 81 mg tablet,de layed release TAKE 1 TABLET BY MOUTH EVERY DAY active Not Available Not Available No t Available sildenafi l 100 mg tablet NEEDED 04/01 completed RECORDED 04/01/19 13 10:28AM BY AMANDA DANIELS/SIMONE ANGELA; Not Available Not Available Not Available butalbita l-acetami nophen-ca ffeine 50 mg-325 mg-40 mg tablet THREE TIMES DAILY, NEEDED 10/14 completed RECORDED 10/15/19 10 9:05AM BY AMANDA DANIELS/SIMONE ANGELA; Not Available Not Available Not Available meloxicam 7.5 mg tablet Take 1 tablet as needed by oral route for 14 days. 11/05 completed Not Available Not Available Not Available Fluticaso ne Propionat e (Inhal) 50 mcg/BLIST inhl powd QD 01/26 completed RECORDED 01/27/20 13 11:41AM BY AMANDA DANIELS ON/ADDEN DUM; Not Available Not Available Not Available amoxicill in 875 mg tablet TWO TIMES DAILY active Not Available Not Available No t Available triamcino lone acetonide 0.025 % topical cream 08/09 completed Not Available Not Available Not Available ciproflox acin 0.3 % eye drops 04/20 completed Not Available Not Available Not Available lorazepam 2 mg tablet TWO TIMES DAILY, NEEDED 05/13 completed RECORDED 08/16/19 09 11:31AM BY LESA HOLBROOK MD, MEDICATI ON AUTO-TORY CTIVATIO N; Not Available Not Available Not Available benzonata te 100 mg capsule 08/09 completed Not Available Not Available Not Available econazole nitrate 1 % topical cream APPLY TO AFFECTED AREA TWICE DAILY X14 DAYS 09/16 completed PRN Not Available Not Available Not Available cephalexi n 500 mg capsule Take 1 capsule every 6 hours by oral route as directed for 10 days. 07/26 completed Not Available Not Available Not Available simvastat in 20 mg tablet DAILY 01/26 completed RECORDED 01/27/20 13 11:40AM BY AMANDA DANIELS ON/SIMONE DUM; Not Available Not Available Not Available erythromy satish 5 mg/gram (0.5 %) eye ointment APPLY 1 CM RIBBON INTO THE LOWER CONJUNCT IVAL SAC(S) IN THE AFFECTED EYE(S) BY OPHTHALM IC ROUTE 3 TIMES PER DAY 04/20 completed Not Available Not Available Not Available tobramyci n 0.3 % eye drops 08/27 completed Not Available Not Available Not Available ranitidin e 150 mg tablet TWO TIMES DAILY 01/26 completed RECORDED 01/27/20 13 11:40AM BY AMANDA DANIELS/SIMONE DUM; Not Available Not Available Not Available polymyxin B sulfate 10,000 unit-trim ethoprim 1 mg/mL eye drops THREE TIMES DAILY 04/01 completed RECORDED 04/01/19 13 10:28AM BY AMANDA DANIELS/ADDANUPAM DUM; Not Available Not Available Not Available gabapenti n 300 mg capsule Take 1 capsule 3 times a day by oral route for 30 days. 05/03 completed Not Available Not Available Not Available omeprazol e 20 mg capsule,d elayed release Take by oral route for 15 days. 08/12 completed Not Available Not Available Not Available cephalexi n 500 mg tablet TAKE 1 TABLET BY MOUTH FOUR TIMES DAILY 01/08 completed Not Available Not Available Not Available codeine 10 mg-guaife nesin 100 mg/5 mL oral liquid Take 10 mL every 6-8 hours by oral route for 5 days. 04/02 completed Not Available Not Available Not Available bisacodyl 5 mg tablet,de layed release TAKE 2 TABLETS BY MOUTH AT NOON THE DAY BEFORE COLONOSC OPY 08/12 completed Not Available Not Available Not Available gabapenti n 100 mg capsule Take 1 capsule 3 times a day by oral route for 30 days. 07/26 completed prn Not Available Not Available Not Available Transderm -Scop 1 mg over 3 days transderm al patch Apply 1 patch every 72 hours by transder mal route for 30 days. active Not Available Not Available No t Available Nasonex 50 mcg/actua tion [place] 1 spray every day by nasal route as needed for 90 days. 04/15 completed Not Available Not Available Not Available cefuroxim e axetil 500 mg tablet 07/01 completed Not Available Not Available Not Available polyethyl rodrigo glycol 3350 17 gram/dose oral powder TAKE 238 GM DIRECTED BY GASTROEN TEROLOGY DEPARTME NT AT [facility] 07/08 completed Not Available Not Available Not Available methylpre dnisolone 4 mg tablets in a dose pack TAKE 6 TABLETS ON DAY 1 DIRECTED ON PACKAGE AND DECREASE BY 1 TAB EACH DAY FOR A TOTAL OF 6 DAYS 01/11 completed Not Available Not Available Not Available fluticaso ne propionat e 50 mcg/actua tion nasal spray,júnior pension 2 sprays in nares daily 08/11 completed Not Available Not Available Not Available loratadin e 10 mg tablet QD 11/03 completed RECORDED 11/04/19 08 3:04PM BY YANI ALVAREZ, OFFICE VISIT; Not Available Not Available Not Available naproxen 500 mg tablet Take 1 tablet twice a day by oral route as needed. 11/05 completed Not Available Not Available Not Available diazepam 5 mg tablet 06/09 completed Not Available Not Available Not Available amoxicill in 875 mg-potass ium clavulana te 125 mg tablet TAKE 1 TABLET BY MOUTH TWICE A DAY FOR 10 DAYS 07/26 completed Not Available Not Available Not Available amoxicill in 500 mg-potass ium clavulana te 125 mg tablet TAKE 1 TABLET BY MOUTH TWICE A DAY 01/20 completed Not Available Not Available Not Available neomycin 3.5 mg/g-poly myxin B 10,000 unit/g-de xameth 0.1 % eye oint APPLY SMALL AMOUNT ON EYELID TWICE A DAY 08/17 completed Not Available Not Available Not Available azithromy satish 500 mg tablet 08/09 completed Not Available Not Available Not Available Laxative (bisacody l) 5 mg tablet TAKE 2 TABLETS BY MOUTH AT NOON THE DAY BEFORE YOUR COLONOSC OPY 07/08 completed Not Available Not Available Not Available cyclobenz aprine 5 mg tablet TAKE 1 TABLET BY MOUTH EVERY DAY AT BEDTIME NEEDED FOR 30 DAYS 07/26 completed Not Available Not Available Not Available Ciprodex 0.3 %-0.1 % ear drops,[facility] [address] 4 DROPS INTO THE RIGHT EAR 2 TIMES A DAY FOR 7 DAYS 05/03 completed Not Available Not Available Not Available Cialis 20 mg tablet Take 1 tablet as needed by oral route for 90 days. 04/05 completed Not Available Not Available Not Available omeprazol e TWO TIMES DAILY 04/21 completed RECORDED 04/21/19 13 12:39PM BY LESA HOLBROOK MD, ANNOTATI ON/ADDEN DUM; Not Available Not Available Not Available econazole nitrate TWO TIMES DAILY 05/20 completed RECORDED 05/30/19 14 8:47AM BY LESA HOLBROOK MD, MEDICATI ON AUTO-TORY CTIVATIO N; Not Available Not Available Not Available Guiatuss AT BEDTIME 01/26 completed RECORDED 01/27/20 13 11:41AM BY AMANDA DANIELS ON/ADDEN DUM;THIS ORDER DISCONTI NUED PER [facility]. Not Available Not Available Not Available Pataday 0.2 % eye drops INSTILL 1 DROP INTO AFFECTED EYE(S) BY OPHTHALM IC ROUTE ONCE DAILY 12/31 completed Not Available Not Available Not Available mesalamin e 1.2 gram tablet,de layed release TAKE 3 TABLETS DAILY active Not Available Not Available No t Available Elastic Wrist Splint Support DAILY 10/14 completed RECORDED 10/15/19 10 9:05AM BY AMANDA DANIELS ON/ADDEN DUM; Not Available Not Available Not Available Antisepti c Skin Cleanser (chlorhex idine) 4 % liquid USE IN SHOWER TO ARMPITS DAILY TOLERATE D DISCONTI NUE IF DRYING active Not Available Not Available No t Available QNASL 80 mcg/actua tion nasal aerosol spray [place] 1 spray every day by nasal route as needed for 90 days. 04/20 completed Not Available Not Available Not Available Zetonna 37 mcg/actua tion nasal HFA inhaler 04/15 completed Not Available Not Available Not Available Vtama 1 % topical cream Apply thin layer TO rash ONCE DAILY until clear. THEN DISCONTI NUE active Not Available Not Available No t Available Vitals Date Recorded Body height Body mass index (BMI) Body weight Heart rate Oxygen saturation Body temperature Systolic And Diastolic Provider Name and Address Organization Details Last Updated DateTime 4 173.99 cm 41.2 kg/m2 292710. 9 g 68 /min 97 % 97.9 [degF] 119/75 mm[Hg] [facility] 4 08:49:50 Date Recorded Body height Body mass index (BMI) Body weight Heart rate Oxygen saturation Body temperature Systolic And Diastolic Provider Name and Address Organization Details Last Updated DateTime 5 173.99 cm 40.9 kg/m2 248965. 72 g 61 /min 97 % 97.4 [degF] 148/88 mm[Hg] [facility] 5 11:37:18 Date Recorded Body height Body mass index (BMI) Body weight Heart rate Oxygen saturation Body temperature Systolic And Diastolic Provider Name and Address Organization Details Last Updated DateTime 5 173.99 cm 40.8 kg/m2 282467. 12 g 60 /min 96 % 98.2 [degF] 127/79 mm[Hg] Lea Canchola MA [facility] 5 11:00:07 Date Recorded Body height Body mass index (BMI) Body weight Heart rate Oxygen saturation Body temperature Systolic And Diastolic Systolic And Diastolic Provider Name and Address Organization Details Last Updated DateTime 4 173.99 cm 40.9 kg/m2 240958. 72 g 64 /min 98 % 98 [degF] 149/80 mm[Hg] 136/80 mm[Hg] Manju paez MA [facility] 4 11:46:08 Date Recorded Body height Body mass index (BMI) Body weight Heart rate Oxygen saturation Body temperature Systolic And Diastolic Provider Name and Address Organization Details Last Updated DateTime 5 173.99 cm 41.1 kg/m2 723166. 31 g 72 /min 96 % 98 [degF] 118/74 mm[Hg] [facility]ett [facility] 5 10:13:52 Social History Question Answer Notes LastModified by Organizat ion Details LastModified Time Tobacco Smoking Status Never Smoker Barb portillo [facility] 04/02/2014 11:01:29 Do You Have An Advance Directive? Yes [email or web address] Information not available 01/08/2022 Is Blood Transfusion Acceptable In An Emergency? Yes Information not available 11/07/2015 What Is Your Level Of Caffeine Consumption? Moderate Information not available 06/12/2021 How Much Tobacco Do You Chew? None Information not available 05/03/2019 What Type Of Diet Are You Following? REGULAR Information not available 09/04/2014 Which Illicit Or Recreational Drugs Have You Used? None Information not available 05/03/2019 Live Alone Or With Others? With Others (Tessa) And 2 Kids [email or web address] Information not available 01/08/2022 Do You Take Precautions To Prevent Distracted Driving? Yes Information not available 11/07/2015 How Often Do You Need To Have Someone Help You When You Read Instructions, Pamphlets, Or Other Written Material From Your Doctor Or Pharmacy? Never Information not available 11/07/2015 Have You Served In The ? No Information not available 04/02/2017 Have You Or Anyone In Your Household Had Any Of The Following Symptoms In The Last 14 Days: Sore Throat, Cough, Chills, Body Aches For Unknown Reasons, Shortness Of Breath For Unknown Reasons, Loss Of Smell, Loss Of Taste, Fever At Or Greater Than 100 Degrees Fahrenheit? No Information not available 11/06/2019 Are You Or Anyone In Your Household A Health Care Provider Or Emergency Responder? No Works At [employer] Information not available 05/06/2020 To The Best Of Your Knowledge Have You Been In Close Proximity To Any Individual Who Tested Positive For COVID-19? No Information not available 05/06/2020 *AWV ONLY* Are You Presently Prescribed Opioid Medication By PCP Or Specialist? If YES -Provider Assess The Benefit For Other, Non-opioid Pain Therapies Instead, Even If The Patient Does Not Have OUD But Is Possibly At Risk. No Information not available 11/06/2019 Have You Recently Traveled To A COVID-19 High Risk Area Or Gathering In The Last 10 Days? No Information not available 05/06/2020 What Was The Date Of Your Most Recent Tobacco Screening? 08/17/2024 Information not available 08/17/2024 How Many Children Do You Have? 3 Information not available 09/04/2014 Do You Use Protection During Sex? No Information not available 05/06/2020 Do You Use Your Seat Belt Or Car Seat Routinely? Yes Information not available 06/12/2021 Seat Belts Used Routinely Yes [email or web address] Information not available 01/08/2022 Are You Sexually Active? Yes Tessa Information not available 01/21/2024 Smoke Alarm In Home Yes [email or web address] Information not available 01/08/2022 Do You Have Smoke And Carbon Monoxide Detectors In Your Home? Yes Information not available 06/12/2021 At What Age Did You Start Smoking Tobacco? 0 Information not available 05/03/2019 Are You Passively Exposed To Smoke? No Information not available 11/07/2015 How Much Tobacco Do You Smoke? No Information not available 11/07/2015 Do You Use Sunscreen Routinely? Yes Information not available 11/07/2015 How Many Years Have You Smoked Tobacco? 0 Information not available 05/03/2019 Sex: Unknown Functional Status Question Answer Note LastModified by Organizat ion Details LastModified Time Do you use any illicit or recreational drugs? No Information not available 09/16/2022 Do you or have you ever used any other forms of tobacco or nicotine? No Information not available 09/16/2022 What is your level of alcohol consumption? None Information not available 06/12/2021 Do you or have you ever used smokeless tobacco? Never used smokeless tobacco Information not available 05/03/2019 Are you currently employed? No retired 03/21/2019 Information not available 05/03/2019 Are you able to walk independently without assistance or assistive devices? YESWOREST [email or web address] Information not available 01/08/2022 Are you able to care for yourself independently? Yes Information not available 04/15/2015 What is your occupation? former [employer] Information not available 05/06/2020 Do you or have you ever used e-cigarettes or vape? Never used electronic cigarettes [email or web address] Information not available 01/08/2022 What is your exercise level? Occasional walking Information not available 07/15/2023 Mental Status None recorded. Family History Relationship Description Onset Age of this Age Resolved Age Notes LastModified by Organization Details LastModified Time Mother Well adult 72 [email or web address] Not silke ilable 09/11/2015 11:27:31 Father Family history unknown brain aneury sm. surger y/76 [email or web address] Not available 09/11/2015 11:27:31 Paternal Aunt Intracranial aneurysm 65 no surger y [email or web address] Not available 09/11/2015 11:27:31 Paternal Grandmother Intracranial aneurysm 38 [email or web address] Not available 08/2015 11:27:31 Paternal Uncle Malignant neoplasm of prostate 65 83 of other causes [email or web address] Not available 09/04/2014 10:42:39 Notes:no fh CRC Medical History Condition Response Other Y Reflux/GERD Y Ear or Hearing Problems Y Acid Reflux (GERD) Y Headaches/Migraines Y GI Problems Y Allergies N Immunizations Vaccine Type Date Status Note Provider Nam e and Address Organization Details Recorded Time Influenza, split virus, quadrivalent, preservative 8 completed Alecia portillo [facility] 08/29/2019 13:32:03 Influenza, split virus, quadrivalent, PF 6 completed YANI Vickers [facility] 01/08/2022 09:41:18 Influenza, split virus, quadrivalent, PF 0 completed YANI Vickers [facility] 01/08/2022 09:41:18 Tdap 8 completed YANI Vickers [facility] 01/08/2022 09:41:18 Influenza, split virus, quadrivalent, PF 9 completed YANI Vickers [facility] 01/08/2022 09:41:19 Td (adult), 2 Lf tetanus toxoid, preservative free, adsorbed 7 completed Aleciaanastacio portillo [facility] 08/29/2019 13:32:03 Tdap 7 completed Aleciaanastacio portillo [facility] 08/29/2019 13:32:03 Influenza, split virus, trivalent, preservative 0 completed Alecia portillo [facility] 08/29/2019 13:32:03 Influenza, split virus, trivalent, preservative 1 completed Alecia Ornelas null, [facility] 08/29/2019 13:32:03 influenza, seasonal, intradermal, preservative free 2 completed Alecia Ornelas null, [facility] 08/29/2019 13:32:03 influenza, seasonal, intradermal, preservative free 3 completed Alecia Ornelas null, [facility] 08/29/2019 13:32:03 Td (adult), 2 Lf tetanus toxoid, preservative free, adsorbed 3 completed Alecia Ornelas null, [facility] 08/29/2019 13:32:03 Past Encounters Encounter ID Performer Location Encounter Start Date Encounter Closed Date Diagnosis/Indication Diagnosis SNOMED-CT Code Diagnosis ICD10 Code Diagnosis IMO Codes Diagnosis Note [id number] [facility] [address] [facility] [place] [address] 05/06/2006 00:00:00 [id number] [facility] [address] [address] [facility],[address] [place] [address] 12/28/2005 00:00:00 [id number] auto[facility] [facility] [address] [facility],[address] [place] [address] 12/08/2005 00:00:00 [id number] auto[facility] er[facility] [address] [facility] [place] [address] 02/06/2005 00:00:00 [id number] auto[facility] [address] [facility] [place] [address] 09/24/2006 00:00:00 [id number] auto[facility] er[facility] [address] [facility],[address] [place] [address] 12/11/2006 00:00:00 [id number] auto[facility]Comm erce [address] [facility] [place] [address] 12/28/2006 00:00:00 [id number] auto[facility] [facility] [address] [facility],[address] [place] [address] 02/03/2007 00:00:00 [id number] auto[facility]Comm erce [address] [facility] [address] [place] [address] 08/16/2007 00:00:00 [id number] auto[facility]Comm erce [address] [facility] [address] [place] [address] 11/04/2007 00:00:00 [id number] auto[facility]Comm erce [address] [facility] [address] [place] [address] 04/06/2008 00:00:00 [id number] auto[facility]Comm erce [address] [facility] [address] [place] [address] 04/13/2008 00:00:00 [id number] auto[facility]Comm erce [address] [facility] [address] [place] [address] 08/15/2008 00:00:00 [id number] auto[facility]Comm erce [address] [facility] [place] [address] 09/25/2009 00:00:00 [id number] auto[facility]Comm erce [address] [facility] [place] [address] 09/26/2009 00:00:00 [id number] auto[facility]Comm erce [address] [facility] [place] [address] 09/28/2009 00:00:00 [id number] auto[facility]Comm erce [address] [facility] [place] [address] 10/16/2009 00:00:00 [id number] auto[facility]Comm erce [address] [facility] [place] [address] 10/22/2009 00:00:00 [id number] auto[facility]Comm erce [address] [facility] [address] [place] [address] 12/19/2009 00:00:00 [id number] auto[facility]Comm erce [address] [facility] [place] [address] 01/24/2010 00:00:00 [id number] autoEComm erce [address] [facility] [address] [place] [address] 06/13/2010 00:00:00 [id number] [address] [place] [address] 07/24/2010 00:00:00 [id number] autoEComm erce [address] [facility] [address] [place] [address] 12/01/2010 00:00:00 [id number] autoEComm erce [address] [facility] [address] [place] [address] 01/27/2011 00:00:00 [id number] autoEComm erce [address] [facility] [address] [place] [address] 03/04/2011 00:00:00 [id number] autoEComm erce [address] [facility] [place] [address] 03/17/2011 00:00:00 [id number] autoEComm erce [address] [facility] [place] [address] 05/13/2011 00:00:00 [id number] autoEComm erce [address] [facility] [place] [address] 12/07/2011 00:00:00 [id number] autoEComm erce [address] [facility] [place] [address] 02/19/2012 00:00:00 [id number] autoEComm erce [address] [facility] [place] [address] 03/23/2012 00:00:00 [id number] autoEComm erce [address] [facility] [place] [address] 04/21/2012 00:00:00 [id number] autoEComm erce [address] [facility] [place] [address] 09/29/2012 00:00:00 [id number] autoEComm erce [address] [facility] [place], [place] [address] 12/06/2012 00:00:00 [id number] [employer]ce [address] [facility] [place], [place] [address] 03/14/2013 00:00:00 [id number] [employer] erce [address] [facility] [place], [place] [address] 04/20/2013 00:00:00 [id number] [employer] erce [address] [facility] [place], [place] [address] 2 07/28/2013 00:00:00 [id number] Lesa fischer MD Main Office [address] [address] [place] [address] 04/02/2014 10:51:19 04/02/2014 11:38:37 Headache 59342422 Disorder of eyelid 04026524 Candidiasis of skin 59467263 itching in buttock area Hyperlipidemia 07313837 Allergic rhinitis 76537883 [id number] Lesa fischer MD Main Office [address] [address] [place] [address] 07/17/2014 09:57:50 07/17/2014 10:31:31 Eustachian tube disorder 19299584 [id number] Lesa fischer MD Main Office [address] [address] [place] [address] 09/04/2014 09:52:47 09/04/2014 10:55:20 Adult health examination [id number] due for a colonoscop y 2015 Thoracic neuritis 85648852 Hyperlipidemia 60592821 co ntinue current meds Gastroesop hageal reflux disease 781348566 Allergic rhinitis 39309661 [id number] Lesa fischer MD Main Office [address] [address] [place] [address] 04/15/2015 11:19:24 04/15/2015 12:09:38 Pain of hip region 31501853 M25.552 Obstructiv e sleep apnea syndrome 27940233 G47.33 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 Start E-mycin opth ointment BID-TID applicatio ns for 1 week. Warm compresses 3 times daily. F/u as needed. Hordeolum 262563737 H00. 019 [id number] Lesa fischer MD Main Office [address] [address] [place] [address] 11/07/2015 09:51:17 11/07/2015 10:40:11 Adult health examination 325319949 Z00.00 due for a colonoscop y 2016 Needs infl uenza immunization 471136040 Z23 Screening for malignant neoplasm of colon 446073438 Z12.11 Hyperlipidemia 85186561 E78.5 continue current meds Foot pain 77609669 M79.6 73 [id number] Magaly Hutson PA-C Main Office [address] [address] [place] [address] 04/20/2016 14:28:59 04/20/2016 15:37:27 Abscess of groin 46633579 L02.214 R groin [id number] Lesa fischer MD Main Office [address] [address] [place] [address] 10/16/2016 14:40:33 10/16/2016 15:35:38 Urinary tract infectious disease 87563840 N39.0 Family his tory of malignant neoplasm of prostate 928592769 Z80.42 Gastroesop hageal reflux disease 950851888 K21.0 Eruption 086331796 R21 [id number] Reina Hutson PA-C Main Office [address] [address] [place] [address] 03/19/2017 11:25:01 03/19/2017 12:03:27 Cough 27372482 R05 Likely persisting due to laryngitis . Pt. tried Tessalon Perles previously w/o much relief. Will prescribe Codeine cough meds for few days . Nasal saline and FLonase as recommende d. Dysfunctio n of eustachian tube 03634663 H69.93 [id number] Lesa fischer MD Main Office [address] [address] [place] [address] 04/02/2017 12:40:56 04/02/2017 13:48:57 Adult health examination 515489283 Z00.00 due for a colonoscop y 2016 Screening for malignant neoplasm of colon 139644964 Z12.11 Administra tion of viral vaccine 30967785 Z23 Hyperlipidemia 89829500 E78.5 continue current meds Allergic rhinitis 747132 04 J30.9 Primary er ectile dysfunction 933552321 N52.9 Impotence of organic origin 142789074 N52.9 [id number] Lesa fischer MD Main Office [address] [address] [place] [address] 04/13/2017 10:40:44 04/13/2017 11:34:20 Right upper quadrant pain 481985037 R10.11 Costal chondritis 922394 04 M94.0 [id number] Magaly Hutson PA-C Main Office [address] [address] [place] [address] 06/09/2017 09:34:13 06/09/2017 10:39:15 Strain of tendon of medial thigh muscle 703740953 S76.812A L groin strain - no evidence of hernia - rec HEP and prn nsaids/jes st heat Low back pain 754991591 M54.5 h/o such, not bothering now - rec HEP [id number] Austin Rios MD Main Office [address] [address] [place] [address] 04/05/2018 08:37:21 04/05/2018 09:47:20 Adult health examination 718927787 Z00.00 Screening for malignant neoplasm of colon 852069313 Z12.11 Low back pain 249200795 M54.5 cont f/u c neos Seborrheic dermatitis 50 909081 L21.9 cont f/u c derm Benign pro static hyperplasia without outflow obstruction 105541337 N40.0 cont f/u c uro Gastroesop hageal reflux disease 720900369 K21.9 neg egd remotely as per pt, cont ppi as dir - ? needs updated egd to r/o victor's - if neg, consider change to H2B Obstructiv e sleep apnea syndrome 53069604 G47.33 no tolerate cpap Hyperlipidemia 32038461 E78.5 cont med as dir, recheck lipids Body mass index 40+ - severely obese 735494397 Z68.41 Impaired f asting glycemia 843307307 R73.01 Severe obesity 852631509 1 9104 E66.01 [id number] Austin Rios MD Main Office [address] [facility] [address] [place] [address] 08/09/2018 08:43:55 08/09/2018 09:51:29 Cervical radiculitis 78209774 M54.12 can continue chiropract or if it feels he's helping you. o/w trial of gabapentin , and see below - will get ortho eval Pain of le ft shoulder joint 0471765802 0217672 M25.512 ? mild RTC strain vs calcific tendonitis - will get ortho eval - can consider prn advil / tyl, rec hep 25 minute office visit with greater than 50% of the visit face-to-fa ce with the patient and/or family providing counseling and/or coordinati on of care. [id number] Austin Rios MD Main Office [address] [facility] [address] [place] [address] 10/17/2018 09:54:14 10/17/2018 11:07:38 Severe obesity 0583148543 9104 E66.01 rec consider seeing [facility] st as previously rec, and increase aerobic ex. Anxiety disorder 3828705 06 F41.9 sig better p long summer vacation Impingemen t syndrome of left shoulder region 4035994619 56549 M75.42 better p shalini injxn from neos, f/u prn Neck pain 79701068 M54.2 cervical OA - can continue chiropract or if it feels he's helping you, rec HEP, prn tyl - if no sig improvemen t then consider PT Obstructiv e sleep apnea syndrome 91395435 G47.33 no tolerate cpap, consider nasal pillows - rec f/u c sleep medicine - will refer back to them [id number] Austin Rios MD Main Office [address] [facility] [address] [place] [address] 01/31/2019 10:21:48 01/31/2019 11:23:29 Needs influenza immunization 828681355 Z23 Chronic low back pain 27 5958310 M54.5 depending on results, will consider ortho or pssp eval Left side sciatica 23603 65411 89671 M54.32 Pain of le ft hip joint 5022483572 67297 M25.552 see above Screening for malignant neoplasm of colon 212779091 Z12.11 [id number] Austin Rios MD Main Office [address] [facility] [address] [place] [address] 05/03/2019 09:44:07 05/03/2019 11:19:53 Adult health examination 952624890 Z00.00 Pain of le ft shoulder joint 1122797947 5637585 M25.512 cont f/u c ortho - had shalini injxn x 2 Obstructiv e sleep apnea syndrome 94194895 G47.33 stable - cont nasal pillows Seborrheic dermatitis 50 807902 L21.9 cont f/u c derm Benign pro static hyperplasia without outflow obstruction 221763702 N40.0 cont f/u c uro Gastroesop hageal reflux disease 614870870 K21.9 neg egd remotely as per pt, cont ppi as dir - ? needs updated egd to r/o victor's - if neg, consider change to H2B Screening for malignant neoplasm of colon 112214074 Z12.11 pending later this yr c Dr. Haney - consider egd as well d/t gerd hx Hyperlipidemia 76329543 E78.5 cont med as dir, recheck lipids Low back pain 304503527 M54.5 better lately, cont hep Seasonal a llergic rhinitis 744685801 J30.2 Body mass index 40+ - severely obese 436171235 E66.01 Z68.41 rec HIIT Strain of trapezius muscle 431030756 S46.811A R>L - rec hep, massage, moist heat Impaired f asting glycemia 257105462 R73.01 Vitamin D deficiency 347 84232 E55.9 mild - rec vit d supp mid fall to mid spring Family his tory of malignant neoplasm of prostate 757251141 Z80.42 Varicella vaccination 68 586340 Z23 [id number] Austin Rios MD Main Office [address] 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 [address] [place] [address] 11/06/2019 09:09:35 11/06/2019 10:09:06 Severe obesity 5512292442 9104 E66.01 rec consider seeing [facility] as previously rec, and increase aerobic ex. 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 --- rec calf/wall stretches as directed for both gastroc & soleus, also rec warm soaks c alphabet stretch (big toe) -- better Prediabetes 631687415 R7 3.03 [id number] Austin Rios MD Main Office [address] [place] [address] 01/01/2020 10:35:23 01/01/2020 12:02:46 Chronic back pain 063191890 M54.9 x several months, no sciatica - rev xray results c pt - mild DDD pt declines PT at this time (brother in law is a PT - he will speak c him) meanwhile rec HEP frequently , lose wt consider PT/pssp eval if no better Needs infl uenza immunization 680565143 Z23 Prediabetes 690010674 R7 3.03 strongly rec. less sugar intake / low carb diet (less ice cream, pastries, soda, juice, candy, bagels, cereal, bread, pasta, etc) and increased aerobic exercise to help with weight loss encouraged pt to get surveillan ce labs done Primary er ectile dysfunction 419041571 N52.9 [id number] Austin Rios MD Main Office [address] [place] [address] 05/06/2020 08:43:25 05/06/2020 09:37:45 Adult health examination 491760235 Z00.00 pending reschedule his colonoscop y/egd (pt states he will reach out to them again) Chronic back pain 873439 002 M54.9 meanwhile rec HEP frequently , lose wt consider PT/pssp eval if no better Obstructiv e sleep apnea syndrome 34119400 G47.33 stable - cont nasal pillows Prediabetes 371958664 R7 3.03 strongly rec. less sugar intake / low carb diet (less ice cream, pastries, soda, juice, candy, bagels, cereal, bread, pasta, etc) and increased aerobic exercise to help with weight loss encouraged pt to get surveillan ce labs done Hyperplasi a of prostate 827779558 N40.0 cont f/u c uro Prostate s pecific antigen above reference range 932881720 R97.20 cont f/u c uro Body mass index 40+ - severely obese 862766926 E66.01 Z68.41 rec HIIT Hyperlipidemia 29468222 E78.5 cont med as dir, recheck lipids Gastroesop hageal reflux disease 921024295 K21.9 neg egd remotely as per pt, cont ppi as dir - ? needs updated egd to r/o victor's - if neg, consider change to H2B [id number] Magaly Hutson PA-C Main Office [address] [facility] [address] [place] [address] 08/12/2020 13:25:17 08/12/2020 14:27:35 Crohn's disease 87450594 K50.90 R lower back pain is better than 2 wks ago, likely d/t effect of mesalamine kicking in - cont med as dir, cont f/u c GI Low back pain 546745331 M54.5 R LBP - better lately - see below - cont hep [id number] Austin Rios MD Main Office [address] [facility] [address] [place] [address] 06/12/2021 10:27:43 06/12/2021 11:45:24 Adult health examination 456266256 Z00.00 Chronic back pain 267094 002 M54.9 better lately, cont HEP frequently , lose wt consider PT/pssp eval if no better Obstructiv e sleep apnea syndrome 33619930 G47.33 stable - cont nasal pillows Prediabetes 306012150 R7 3.03 strongly rec. less sugar intake / low carb diet (less ice cream, pastries, soda, juice, candy, bagels, cereal, bread, pasta, etc) and increased aerobic exercise to help with weight loss encouraged pt to get surveillan ce labs done Hyperplasi a of prostate 840100336 N40.0 cont f/u c uro prn Body mass index 40+ - severely obese 541543701 E66.01 Z68.41 rec HIIT, myplate, WW Hyperlipidemia 62452846 E78.5 cont med as dir, recheck lipids Gastroesop hageal reflux disease 128807464 K21.9 neg egd remotely as per pt, cont ppi as dir Crohn's disease 41562485 K50.90 stable - cont med as dir, cont f/u c GI Hepatitis C screening 41 4815995 Z11.59 Varicella vaccination 68 332430 Z23 [id number] Austin Rios MD Main Office [address] [facility] [address] [place] [address] 07/31/2021 15:44:12 07/31/2021 17:02:10 Numbness of hand 551359428 R20.0 BUE - likely d/t cervical radiculiti s - see below Cervical radiculitis 110 80892 M54.12 can continue chiropract or if he feels it's helping - pt declines gabapentin , will get pmr eval & recheck xray - last done 08.24 [id number] Austin Rios MD Main Office [address] [facility] [address] [place] [address] 01/08/2022 09:24:07 01/08/2022 10:29:24 Prediabetes 444077431 R73.03 strongly rec. less sugar intake / low carb diet (less ice cream, pastries, soda, juice, candy, bagels, cereal, bread, pasta, etc) and increased aerobic exercise to help with weight loss Severe obesity 350525389 1 9104 E66.01 rec consider seeing [facility] as previously rec, and increase aerobic ex. Obstructiv e sleep apnea syndrome 16891989 G47.33 stable - cont nasal pillows Cervical radiculitis 110 97499 M54.12 can continue chiropract or if he feels it's helping - pt declines gabapentin , will get pmr eval & recheck xray - last done 08.24 - seen by PMR, had PT, pending NCS - rec trial of gbn hs - see below Lumbosacra l radiculitis 52552116 M54.17 LLE - h/o herniated disc > 20 yrs, no h/o sx - check xray, last done 3 yrs ago - encouraged pt to f/u c Dr. Do Primary er ectile dysfunction 836278910 N52.9 [id number] Austin Rios MD Main Office [address] [facility] [address] [place] [address] 07/08/2022 10:00:05 07/08/2022 11:15:56 Adult health examination 354003944 Z00.00 Prediabetes 739271331 R7 3.03 strongly rec. less sugar intake / low carb diet (less ice cream, pastries, soda, juice, candy, bagels, cereal, bread, pasta, etc) and increased aerobic exercise to help with weight loss Obstructiv e sleep apnea syndrome 00055091 G47.33 stable - cont nasal pillows Cervical radiculitis 110 17237 M54.12 can continue chiropract or if he feels it's helping - pt declines gabapentin , will get pmr eval & recheck xray - last done 08.24 - seen by PMR, had PT, pending NCS - rec trial of gbn hs - see below 5. - cont f/u c pmr Lumbosacra l radiculitis 18667616 M54.17 LLE - h/o herniated disc > 20 yrs, no h/o sx - check xray, last done 3 yrs ago - encouraged pt to f/u c Dr. Do 5. - cont f/u c pmr -- will attempt to get recent ov notes Primary er ectile dysfunction 008003027 N52.9 Body mass index 30+ - obesity 379541013 E66.01 Z68.39 has lost ~ 15 lbs recently - cont as dir Crohn's disease 63714911 K50.90 stable - cont med as dir, cont f/u c GI History of polyp of colon 106996598 Z86.010 due for colonoscop y in next few months Nocturia 834626626 R35.1 Hyperlipidemia 42527285 E78.5 cont med as dir, recheck lipids Hyperplasi a of prostate 974477396 N40.0 cont f/u c uro prn Vitamin D deficiency 347 49270 E55.9 mild - rec vit d supp mid fall to mid spring Gastroesop hageal reflux disease 200497975 K21.9 neg egd remotely as per pt, cont ppi as dir Tinea corporis 86223070 B35.4 of umbilicus - rec lotrimin or desitin prn, call if worse/no better for rx strength if needed [id number] Austin Rios MD Main Office [address] [place] [address] 09/07/2022 10:23:15 09/07/2022 11:38:02 Low back pain 164939767 M54.50 h/o lumbosacra l radiculiti s - seen by pmr in past === now is tender on L SI jt - no sig help/ temp help c heat, then returns quickly thereafter , aggrav by prolonged sitting/st anding, cont nsaids/tyl === rec increase HEP = described a few stretches, consider thermacare patch by day, salonpas patch o/n, trial c prn m relaxer f/u in 1 month - consider xray, pmr eval if no sig improvemen t Lumbosacra l radiculitis 82524210 M54.17 LLE - h/o herniated disc > 20 yrs, no h/o sx - check xray, last done 3 yrs ago - encouraged pt to f/u c Dr. Do 5.23 - cont f/u c pmr -- will attempt to get recent ov notes 7.23 - see above, cont gbn as dir [id number] Shaniqua Cross MD Main Office [address] [facility] [address] [place] [address] 09/16/2022 14:55:07 09/16/2022 15:41:59 Low back pain 809205608 M54.50 Given that NSAID and msk relaxants have not helped with normal PSA and absent urinary sx. We will start Medrol pack, advised risk of causing elevation in blood glucose. Symptoms do not present like pelvic floor congestion /dysfuncti on or claudicati on. There is no radicular symptoms that would suggest there is nerve root compressio n, for reassuranc e an x-ray of the lumbar sacrum was ordered. Will refer to physiatry as he is already establishe d. Also recommende d physical therapy and a referral was provided. Symptoms are more suggestive of SI joint dysfunctio n. There is some discomfort in the inguinal region and some fullness, and thus I have ordered an ultrasound to further evaluate this.Weigh t loss advised.Re d flag symptoms discussed when to have it evaluated urgently. Inguinal pain 797360816 R10.2 [id number] Austin Rios MD Main Office [address] [facility] [address] [place] [address] 01/11/2023 08:34:37 01/11/2023 09:43:03 Prediabetes 708775391 R73.03 strongly rec. less sugar intake / low carb diet (less ice cream, pastries, soda, juice, candy, bagels, cereal, bread, pasta, etc) and increased aerobic exercise to help with weight loss11.23 - recheck Influenza vaccination declined 145587106 Z28.21 Low back pain 000564716 M54.50 h/o lumbosacra l radiculiti s - seen by pmr in past === now is tender on L SI jt - no sig help/ temp help c heat, then returns quickly thereafter , aggrav by prolonged sitting/st anding, cont nsaids/tyl === rec increase HEP = described a few stretches, consider thermacare patch by day, salonpas patch o/n, trial c prn m relaxer f/u in 1 month - consider xray, pmr eval if no sig improvemen t 11.23 - better lately Cellulitis of left lower limb 6122071207 2695948 L03.116 improving - finish abx as dirrecomme nd probiotics while on abxcont elevation, comp sockswill get vascular eval - see below Peripheral venous insufficiency 65227990 I87.2 see above - has had four bouts of cellulitis , once was hospitaliz ed - no trauma to LLE so believe d/t cvi - will get vascular eval [id number] Austin Rios MD [facility] [address] [facility] [address] [place] [address] 01/26/2023 09:32:05 01/26/2023 10:49:00 Edema of lower extremity 625464329 R60.0 mild LLE, none RLE - had endovascul ar eval - reviewed consult, no evidence of chronic venous insufficie ncy, rec comp socks - pending get, and also rec ID eval - see below no h/o CHF and now no evidence of venous insufficie ncy or dvt - so ? etiology - ? dependent - cont elevation, comp socks, low salt diet? d/t lymphedema - will get lymphedema consult as well -- found this onlineWhat does lymphedema cellulitis look like?Lymph edema complicati ons may include: Skin infections (celluliti s). The trapped fluid provides fertile ground for germs, and the smallest injury to the arm or leg can be an entry point for infection. Affected skin appears swollen and red and is typically painful and warm to the touch Cellulitis of lower limb 145163344 L03.116 improving - finish abx as dirrecomme nd probiotics while on abxcont elevation, comp sockswill get vascular eval - see below 11.21.23 - see above - has had four bouts of cellulitis , once was hospitaliz ed - no trauma to LLE or CVI - - will get ID eval as rec by vascular d/t recurrent cellulitis LLE Prediabetes 802188816 R7 3.03 strongly rec. less sugar intake / low carb diet (less ice cream, pastries, soda, juice, candy, bagels, cereal, bread, pasta, etc) and increased aerobic exercise to help with weight loss11.23 - stable a1c at 5.6 down from 5.8 a few years ago [id number] Austin Rios MD Main Office [address] [facility] [address] [place] [address] 07/15/2023 08:37:18 07/15/2023 09:39:36 Adult health examination 138436028 Z00.00 Edema of l ower extremity 636188711 R60.0 mild LLE, none RLE - had endovascul ar eval - reviewed consult, no evidence of chronic venous insufficie ncy, rec comp socks - pending get, and also rec ID eval - see below no h/o CHF and now no evidence of venous insufficie ncy or dvt - so ? etiology - ? dependent - cont elevation, comp socks, low salt diet? d/t lymphedema - will get lymphedema consult as well -- found this onlineWhat does lymphedema cellulitis look like?Lymph edema complicati ons may include: Skin infections (celluliti s). The trapped fluid provides fertile ground for germs, and the smallest injury to the arm or leg can be an entry point for infection. Affected skin appears swollen and red and is typically painful and warm to the touch 5.24 - seen by lymphedema clinic, very helpful as per pt - rec comp socks/wrap , f/u prn Cellulitis of lower limb 364111063 L03.116 improving - finish abx as dirrecomme nd probiotics while on abxcont elevation, comp sockswill get vascular eval - see below 11..23 - see above - has had four bouts of cellulitis , once was hospitaliz ed - no trauma to LLE or CVI - - will get ID eval as rec by vascular d/t recurrent cellulitis LLE 5.24 - seen by ID - gave rx advice if happens again, f/u prn Crohn's disease 03800809 K50.90 stable - cont med as dir, cont f/u c GI yrly Hyperlipidemia 49452244 E78.5 cont med as dir, recheck lipids Hyperplasi a of prostate 865503198 N40.0 stable - cont f/u c uro prn Obstructiv e sleep apnea syndrome 05609356 G47.33 stable - cont nasal pillows Prediabetes 015580941 R7 3.03 strongly rec. less sugar intake / low carb diet (less ice cream, pastries, soda, juice, candy, bagels, cereal, bread, pasta, etc) and increased aerobic exercise to help with weight loss11.23 - stable a1c at 5.6 down from 5.8 a few years ago Vitamin D deficiency 347 78631 E55.9 mild - rec vit d supp mid fall to mid spring Gastroesop hageal reflux disease 549523621 K21.9 neg egd remotely as per pt, cont ppi as dir Nocturia 353451975 R35.1 Fatigue 28077557 R53.83 Body mass index 40+ - severely obese 892665038 E66.01 Z68.41 rec HIIT, myplate, WW [id number] Mikael Vidales MD Main Office [address] [place] [address] 01/21/2024 11:19:10 01/21/2024 11:46:11 Cellulitis of left lower limb 4935779926 5289191 L03.116 x1 week of symptoms>e rythema, swelling, tenderness -hx of cellulitis -denies of any fever, chills, fatigue, known injury/ryan ama to the area-no open wounds, drainage/d ischarge-s ee photo attached>t ight, glossy, firm skin>tende r to palpation- will provide cephalexin 10 day course-dis cussed conservati ve measuremen ts [id number] Austin Rios MD Main Office [address] [place] [address] 07/26/2024 11:20:24 07/26/2024 12:17:53 Pain of left heel 8113048748 714065 M79.672 [id number] no evidence of plantar fasciitis or achilles tendonitis most likely has heel spurcheck xrayconsid er dr chapa'irene heel cup/cushkitty husain aleve, prn ice/elevat ionpending see [facility] on aging director in 8.25 - enc pt to call to get on cx list Primary er ectile dysfunction [id number] N52.9 pt requested refill [id number] Austin Rios MD Main Office [address] [address] 08/17/2024 10:40:36 08/17/2024 12:12:43 Adult health examination [id number] Z00.00 colon in 2022 (due 2027) Crohn's disease 08208507 K50.90 stable - cont med as dir, cont f/u c GI yrly Prediabetes 158337501 R7 3.03 strongly rec. less sugar intake / low carb diet (less ice cream, pastries, soda, juice, candy, bagels, cereal, bread, pasta, etc) and increased aerobic exercise to help with weight loss 11.23 - stable a1c at 5.6 down from 5.8 a few years ago 6.25 -a1c stable at 5.7%, active job, rec diet above Obstructiv e sleep apnea syndrome 94370001 G47.33 stable - wears cpap Pain of left heel [id number] M79.672 [id number] no evidence of plantar fasciitis or achilles tendonitis most likely has heel spurcheck xrayconsid er dr chapa'irene heel cup/gladys husain aleve, prn ice/elevat ionpending see council on aging director in 8.25 - enc pt to call to get on cx list 6.25 - better c orthotic/p added sneakers ([place]), pending see podiatry 10.30 Gastroesop hageal reflux disease [id number] K21.9 neg egd remotely as per pt, cont ppi as dir Hyperlipidemia 81355898 E78.5 cont med as dircont to limit sat. fat intake (red meat / cheese)if ldl increases then consider upping statin Body mass index 40+ - severely obese [id number] E66.01 Z68.41 rec HIIT, myplate, WW [id number] Austin Rios MD Main Office [address] [facility] [address] [place] [address] 02/06/2025 09:50:06 02/06/2025 11:04:15 Prediabetes 872603596 R73.03 strongly rec. less sugar intake / low carb diet (less ice cream, pastries, soda, juice, candy, bagels, cereal, bread, pasta, etc) and increased aerobic exercise to help with weight loss 11.23 - stable a1c at 5.6 down from 5.8 a few years ago 6.25 -a1c stable at 5.7%, active job, rec diet above 12.25 - pending labs from earlier today Crohn's disease 98171698 K50.90 stable - cont med as dir, cont f/u c GI yrly 12.25 - see below - pending see gi next week - ? needs updated egd/colon* will fwd copy of this ov note and studies to gi* Epigastric pain 10534462 R10.13 16458 ? d/t underlying constipati on (overflow diarrhea) d/t bloating, as well as early satiety/be lchingchec k axr to r/o constipati on - see below Gastroesop hageal reflux disease 438040919 K21.9 [id number] neg egd remotely as per pt, cont ppi as dir 12.25 - stable, cont ppi qd as dir Early satiety 970624290 R68.81 [id number] check ugis c cc: gi Acute constipation 9006 K59.00 712381 ? if this is contributi ng to above - ? fullness in transverse colon negatively affecting stomach expansion - cont mag qd as dir, but consider adding laxative tonight to see if helps move bowels / feel bettercont stay well hydrated, limit bananas, rice Health Concerns Section Related Observation LastModified by Organization Detai ls LastModified Time None Recorded Concern Status LastModified by Organization Details LastModified Time None Recorded Advance Directives Directive Y: Payers Insurance Date Sequence Insurance Name Policy Number Policy Tong Covered Member ID Tong Member ID Guarantor Name 02/06/2025 1 [facility] [id number] Myles Kwon Shannanirenezevlilian [id number] Myles Rivasdanieli 01/11/2023 1 [employer] [facility] ([facility] [id number] Myles Campbellrobert [id number] Myles Campbellnashi Notes Date Note Type Note Provider Name and Address Organization Details Recorded Time 07/15/2023 text/html Generic HPI TemplateReported by Patient here for annual pe. Magaly Hutson PA-C [address] [address], [place], [address], [facility] [place] 07/15/2023 10:25:32 01/21/2024 text/html ROS as noted in the HPI Myles is a 58yr old M who presents for erythema and tenderness to the left lower calf x1 week. Hx of cellulitis. Saw ID in 01/2023 for multiple cellulitis episodes. Pt denies of any known injuries/trauma to the area. No open wounds. Reports of tenderness, swelling, redness, and tight skin around affected area. 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 Denies of any fever, chills, drainage/discharge. Renee portillo, [facility] [place] 01/31/2024 13:09:29 07/26/2024 text/html Patient reports 2 weeks ago while on vacation he injured the left heal. He is unsure how this occurred but he states he spent a lot of the time in the pool and waling bare foot. has the pain each time walking stepping off the foot. Confirmed is scheduled the [facility] Rosa however they are booking out untiloctober. Magaly Hutson PA-C [address] [facility] [address], [place], [address], [facility] [place] 07/26/2024 12:45:34 08/17/2024 text/html Generic HPI TemplateReported by Patienthere for annual peROS as noted in the HPI Magaly Hutson PA-C [address] [facility] [address], [place], [address], [facility] [place] 08/17/2024 12:38:48 02/06/2025 text/html here for 6 month f/u visitlabs done just earlier today - pending c/o past week of early satiety - not on glp1 - but this epigastric fullness is intermittent - fades away after few hoursno constipation as per ptave bm 2-3 times/day - small amount, loose+ belching, bloatingno n/v, brbpr, htbntakes magnesium qd+ h/o crohn'spending see gi next wk - dedrick shin colon 6.23, last egd 4.21had nl tsh 5.6.25 Magaly Hutson PA-C [address] [facility] [address], [place], [address], [facility] [place] 02/06/2025 11:04:50
--- OUTSIDE RECORDS SUMMARY | 2025-02-14 08:10 | XMS_ITS | Continuity of Care Document ---
Author Organization [facility], Main Office Address [address] [facility] [address] [place] [address] Care Team Providers Care Property Adjuster Name Role Phone ANGELI MCINTYRE Urologist [facility] [employer] [phone] PEÑA HUTSON Primary Care Provider [facility] (SIRI KILGORE) Orthopedist MAO DO Pain Management JOHN MONTENEGRO Foundation Digger PAT ZAMORA Wind Commissioning Technician Assessment No assessment recorded. Plan of Treatment Reminders Order Date Submit Date Provider Last Modified By Organization Details Last Modified Time Details Appointments None recorded. Lab None recorded. Referral None recorded. Procedures None recorded. Surgeries None recorded. Imaging XR, abdomen 2024 025 [facility], [address] [place], [address], 11:19:35 RF, upper gastrointe stinal tract, w/ contrast PO 2024 025 [facility] Centralized Scheduling([facility] [address] [place], [address], 13:00:54 Medication Orders None recorded. Patient TargetsNo targets recorded. Patient Instructions Encounter Date Encounter Id Patient Instructions Last Modified By Organization Details Last Modified Time 02/06/2025 [id number] Follow up if no improvement or if symptoms worsen. [email or web address] Not available 02/06/2025 11:04:16 Reason for Referral None Reported. Results Created Date Observation Date Name Description Value Unit Range Abnormal Flag Note LastModifiedBy Organization Detail LastModifiedTime 02/07/2002/06/2025 BASIC METAB OLIC PANEL (8) glucose 100 mg/dL 70-99 above high normal Not Available [facility] ([facility]) [address] [facility] [place], [address], 02/07/2025 06:09:00 02/07/2002/06/2025 BASIC METAB OLIC PANEL (8) BUN 14 mg/dL 6-24 normal Not Available [facility] ([facility]) [address] [facility] [place], [address], 02/07/2025 06:09:00 02/07/2002/06/2025 BASIC METAB OLIC PANEL (8) creatinine 0.79 mg/dL 0.76-1 .27 normal Not Available [facility] ([facility]) [address] [facility] [place], [address], 02/07/2025 06:09:00 02/07/2002/06/2025 BASIC METAB OLIC PANEL (8) eGFR 102 mL/mi n/1.7 3 >59 normal Not Available [facility] ([facility]) [address] [facility] [place], [address], 02/07/2025 06:09:00 02/07/2002/06/2025 BASIC METAB OLIC PANEL (8) BUN/creatini ne ratio 18 9-20 normal Not Available [facility] ([facility]) [address] [facility] [place], [address], 02/07/2025 06:09:00 02/07/2002/06/2025 BASIC METAB OLIC PANEL (8) sodium 140 mmol/ L 134-14 4 normal Not Available [facility] ([facility]) [address] [facility] [place], [address], 02/07/2025 06:09:00 02/07/20 25 02/06/2025 BASIC METAB OLIC PANEL (8) potassium 4.4 mmol/ L 3.5-5. 2 normal Not Available [facility] ([facility]) [address] [facility] [place], [address], 02/07/2025 06:09:00 02/07/2002/06/2025 BASIC METAB OLIC PANEL (8) chloride 102 mmol/ L 96-106 normal Not Available [facility] ([facility]) [address] [facility] [place], [address], 02/07/2025 06:09:00 02/07/2002/06/2025 BASIC METAB OLIC PANEL (8) carbon dioxide, total 28 mmol/ L 20-29 normal Not Available [facility] ([facility]) [address] [place], [address], 02/07/2025 06:09:00 02/07/2002/06/2025 BASIC METAB OLIC PANEL (8) calcium 9.4 mg/dL 8.7-10 .2 normal Not Available [facility] ([facility]) [address] [place], [address], 02/07/2025 06:09:00 02/07/2002/06/2025 HEMOG LOBIN A1C hemoglobin A1C 5.7 % 4.8-5. 6 above high normal Predi abete s: 5.7 - 6.4 Diabe mauricio: >6.4 Glyce april contr ol for adult s with diabe mauricio: <7.0 Not Available [facility] ([facility]) [address] [place], [address], 02/07/2025 06:09:01 02/09/2002/06/2025 XR, abdom en XR Abdome n [...] left with degene rative change s. IMPRES GEOFFREY: Incomp lete covera ge of the upper abdome n. No acute intra- abdomi nal findin gs. WSN: [id number] Orderi ng Physic esvin: Joe Hutson Dictat ed By: Cecy Cline MD Dictat ed Date/T cierra: 7:56 am Review ed By: Cecy Cline MD Signed By: Cecy Cline MD Signed Date/T cierra: 7:56 am Transc ribed By: SIDDHARTH Transc ribed Date/T cierra: 7:53 am Patien t Class: Outpat ient [facility] (Outpt Imaging) [address] [facility], [place], [address], 02/08/2025 11:31:59 02/14/20 25 02/13/2025 xr ugi doubl e contr ast XR [...] hernia measur ing under 1.[address] vertic al dimens ion is seen. Despit [...] is in the normal locati on. IMPRES GEOFFREY: 1. Findin gs sugges tive of antral [...] I agree with this report . WSN: [id number] Orderi ng Physic esvin: Joe Hutson Dictat ed By: Nita Tomlin Dictat ed Date/T cierra: 11:25 a Review ed By: Saúl Watt MD, V Signed By: Saúl Watt MD, V Signed Date/T cierra: 11:30 am Transc ribed By: SIDDHARTH Transc ribed Date/T cierra: 9:05 am Wes rosenthal Class: Outpat ient [facility] (Outpt Imaging) [address] [place] [address], [address], 02/13/2025 15:22:49 Result Notes None recorded. Problems Name Problem SNOMED Code Status Onset Date Resolution Date Notes Provider Name and Address Organization Details Recorded Time Anxiety disorder Active Alecia Ornelas null, [facility] 0 13:32:08 Patient status finding [id number] Completed 04/02/2017 Karlee portillo, [facility] 8 09:19:21 Cough [id number] Completed 04/02/2017 Karlee portillo, [facility] 8 09:19:43 Elevated blood-pr essure reading without diagnosi s of hyperten geoffrey 138452994 Completed 04/05/2018 Peña Hutson PA-C [address] [facility] [address], [place], [address] , [facility] 9 09:18:12 Follow-u p encounte r Completed 04/02/2017 Karlee portillo, [facility] 8 09:19:40 Impotenc e of organic origin Active Aleciagregory Ornelas null, [facility] 0 13:32:08 Gastroes ophageal reflux disease 410713315 Active Alecia Ornelas null, [facility] 0 13:32:08 Hyperlip idemia 58872505 Active Alecia Ornelas null, [facility] 0 13:32:08 Neck pain 41163942 Completed 04/02/2017 Karlee portillo, [facility] 8 09:21:03 Examinat ion for suspecte d mental disorder Completed 04/05/2018 Peña Hutson PA-C [address], [place], [address] , [facility] 9 09:17:43 Paronych ia of finger 092056025 Completed 04/05/2018 Peña Hutson PA-C [address], [place], [address] , [facility] 9 09:19:21 Obstruct megan sleep apnea syndrome 54642931 Active Alecia portillo, [facility] 0 13:32:08 Eruption 092725370 Completed 04/05/2018 Peña Hutson PA-C [address] [facility] [address], [place], [address] , [facility] 9 09:17:47 Changes in skin texture 643597347 Completed 04/05/2018 Peña Hutson PA-C [address] [facility] [address], [place], [address] , [facility] 9 09:17:51 Carpal tunnel syndrome 96511868 Active Alecia Ornelas null, [facility] 0 13:32:08 Allergic rhinitis 18804638 Active Alecia Ornelas null, [facility] 0 13:32:08 Adult health examinat ion Completed 04/02/2017 Karlee portillo, [facility] 8 09:19:30 Pain in limb 51753325 Completed 04/02/2017 Karlee portillo, [facility] 8 09:21:09 Headache 35832543 Completed 04/02/2017 Karlee portillo, [facility] 8 09:19:25 Disorder of eyelid 65893815 Active Aleica Ornelas [facility], [facility] 0 13:32:08 Candidia sis of skin 12763407 Active Alecia Ornelas null, [facility] 0 13:32:08 Sinusiti s 71610515 Completed 04/05/2018 Peña Hutson PA-C [address] [facility] [address], [place], [address] , [facility] 9 09:17:54 Motion sickness 38322072 Active Alecia Ornelas null, [facility] 0 13:32:08 Eustachi an tube disorder 58818304 Active Alecia Ornelas null, [facility] 0 13:32:08 Thoracic neuritis 58133301 Active Alecia Johnson portillo, [facility] 0 13:32:08 Pain of hip region 03236305 Completed 04/02/2017 Karlee portillo, [facility] 8 09:22:02 Pain of elbow region 14152419 Completed 04/02/2017 Karlee portillo, [facility] 8 09:21:49 Onelia calzada 128249335 Completed 04/05/2018 Peña Hutson PA-C [address], [place], [address] , [facility] 9 09:18:18 Acute secretor y otitis media 278495365 Completed 200709/26/2013 IMPRESSI ON: BILAT, RED WITH EFFUSION , TX THIS AND SINUSITI S; RECORDED 11/04/19 08 10:10AM BY AMANDA VERGARA ON/ADDANUPAM DUM Reina SCHUSTERC [address], [place], [address] , [facility] 6 11:57:29 Acute secretor y otitis media 417547319 Completed 200710/16/2013 IMPRESSI ON: BILAT, RED WITH EFFUSION , TX THIS AND SINUSITI S; RECORDED 11/04/19 08 10:10AM BY AMANDA VERGARA ON/ADDEN DUM Reina SCHUSTERC [address], [place], [address] , [facility] 6 11:57:29 Screenin g for malignan t neoplasm of colon Completed 200809/26/2013 RECORDED 04/06/19 09 8:48AM BY AMANDA VERGARA ON/ADDEN DUM Reina SCHUSTERC [address], [place], [address] , [facility] 6 11:57:29 Urgent desire to urinate 57325884 Completed 200809/26/2013 RECORDED 04/06/19 09 8:48AM BY AMANDA VERGARA ON/ADDEN DUM Reina Hutson PA-C [address], [place], [address] , [facility] 6 11:57:29 Screenin g for malignan t neoplasm of colon Completed 200810/16/2013 RECORDED 04/06/19 09 8:48AM BY AMANDA VERGARA ON/ADDEN DUM Reina Hutson PA-C [address], [place], [address] , [facility] 6 11:57:29 Urgent desire to urinate 41456577 Completed 200810/16/2013 RECORDED 04/06/19 09 8:48AM BY AMANDA VERGARA ON/ADDEN DUM Reina Hutson PA-C [address], [place], [address] , [facility] 6 11:57:29 Glucose level outside referenc e range 105681531 Completed 201109/26/2013 RECORDED 12/07/19 12 8:54AM BY MANUEL BUTLER MA, AMANDA ON/ADDEN DUM Reina Hutson PA-C [address], [place], [address] , [facility] 6 11:57:29 Acute sinusiti s 22013901 Completed 201109/26/2013 RECORDED 12/07/19 12 8:54AM BY MANUEL BUTLER MA, AMANDA ON/ADDEN DUM Reina Hutson PA-C [address], [place], [address] , [facility] 6 11:57:29 Acute upper respirat ory infectio n 44183227 Completed 201109/26/2013 IMPRESSI ON: UR SXS X PAST THREE DAYS, NO FEVERS, NON FOCAL EXAM. ADVISED RE VIRAL, NEEDS MORE TIME. SX MANAGEME NT, REST AND INCREASE FLUIDS. CALL OFFICE PRN.; RECORDED 12/07/19 12 8:54AM BY MANUEL BUTLER MA, AMANDA ON/WellTekargenis Gordonden PA-C [address] [facility] [address], [place], [address] , [facility] 6 11:57:29 Cellulit is 308919792 Completed 201109/26/2013 STORY: RIGHT LEG; RECORDED 12/07/19 12 8:54AM BY MANUEL BUTLER MA, AMANDA ON/WellTekargenis Hutson PA-C [address] [facility] [address], [place], [address] , [facility] 6 11:57:29 Chest pain 53802997 Completed 201109/26/2013 STORY: PT WAS SEEN AT THE HOSPITAL FOR CHEST PAIN AND WAS GIVEN AN ECHO, AND STRESS TEST WHICH ALL CAME BACK NORMAL. PT IS FEELING BETTER AND WILL SCHEDULE AN APPT TO BE SEEN BY [facility] AFTER LABS ARE DRAWN. MEDS ARE RECONCIL ED.; RECORDED 12/07/19 12 8:54AM BY MANUEL BUTLER MA, AMANDA ON/CHRISTINAFriendsEATargenis Hutson PA-C [address] [facility] [address], [place], [address] , [facility] 6 11:57:29 Dysfunct ion of eustachi an tube 97599553 Completed 201109/26/2013 IMPRESSI ON: NORMAL EXAM TODAY. ADVISED PT TO CONTINUE WITH ANTIHIST , DECONG, FLONASE. WILL SEE ENT NEXT WEEK, TO CALL ME SOONER PRN.; RECORDED 12/07/19 12 8:54AM BY MANUEL BUTLER MA, AMANDA ON/WellTekargenis Gordonden PA-C [address] [facility] [address], [place], [address] , [facility] 6 11:57:29 Headache 77197124 Completed 201109/26/2013 RECORDED 12/07/19 12 8:54AM BY MANUEL BUTLER MA, ANNOTATI ON/ADDEN DUM Karlee Serrano MA null, [facility] 8 09:19:25 Pain in limb 28672184 Completed 201109/26/2013 RECORDED 12/07/19 12 8:54AM BY MANUEL BUTLER MA, ANNOTATI ON/ADDEN DUM Karlee Serrano MA null, [facility] 8 09:21:09 Onychia of finger 07386677 Completed 201109/26/2013 RECORDED 12/07/19 12 8:54AM BY MANUEL BUTLER MA, ANNOTATI ON/ADDEN DUM Reina Doc PA-C [address], [place], [address] , [facility] 6 11:57:29 Disorder of upper respirat ory system Completed 201109/26/2013 RECORDED 12/07/19 12 8:54AM BY MANUEL BUTLER MA, AMANDA ON/ADDEN DUM Reina Doc PA-C [address], [place], [address] , [facility] 6 11:57:29 Peripher al venous insuffic iency 28502150 Completed 201109/26/2013 RECORDED 12/07/19 12 8:54AM BY MANUEL BUTLER MA, ANNOTPUSHPA ON/ADDEN DUM Reina Doc PA-C [address], [place], [address] , [facility] 6 11:57:29 Glucose level outside referenc e range 231079045 Completed 201110/16/2013 RECORDED 12/07/19 12 8:54AM BY MANUEL BUTLER MA, AMANDA ON/ADDEN DUM Reina Hutson PA-C [address], [place], [address] , [facility] 6 11:57:29 Acute sinusiti s 71348724 Completed 201110/16/2013 RECORDED 12/07/19 12 8:54AM BY MANUEL BUTLER MA, AMANDA ON/ADDEN DUM Reina Hutson PA-C [address] [facility] [address], [place], [address] , [facility] 6 11:57:29 Acute upper respirat ory infectio n 70999832 Completed 201110/16/2013 IMPRESSI ON: UR SXS X PAST THREE DAYS, NO FEVERS, NON FOCAL EXAM. ADVISED RE VIRAL, NEEDS MORE TIME. SX MANAGEME NT, REST AND INCREASE FLUIDS. CALL OFFICE PRN.; RECORDED 12/07/19 12 8:54AM BY MAUNEL BUTLER MA, AMANDA ON/ADDEN DUM Reina Hutson PA-C [address] [facility] [address], [place], [address] , [facility] 6 11:57:29 Cellulit is 094036277 Completed 201110/16/2013 STORY: RIGHT LEG; RECORDED 12/07/19 12 8:54AM BY MANUEL BUTLER MA, AMANDA ON/SIMONE Hutson PA-C [address] [facility] [address], [place], [address] , [facility] 6 11:57:29 Chest pain 59684812 Completed 201110/16/2013 STORY: PT WAS SEEN AT THE HOSPITAL FOR CHEST PAIN AND WAS GIVEN AN ECHO, AND STRESS TEST WHICH ALL CAME BACK NORMAL. PT IS FEELING BETTER AND WILL SCHEDULE AN APPT TO BE SEEN BY [facility] AFTER LABS ARE DRAWN. MEDS ARE RECONCIL ED.; RECORDED 12/07/19 12 8:54AM BY MANUEL BUTLER MA, AMANDA ON/ADDEN DUM Reina Hutson PA-C [address] [facility] [address], [place], [address] , [facility] 6 11:57:29 Dysfunct ion of eustachi an tube 86149880 Completed 201110/16/2013 IMPRESSI ON: NORMAL EXAM TODAY. ADVISED PT TO CONTINUE WITH ANTIHIST , DECONG, FLONASE. WILL SEE ENT NEXT WEEK, TO CALL ME SOONER PRN.; RECORDED 12/07/19 12 8:54AM BY MANUEL BUTLER MA, ANNOTATI ON/ADDEN DUM Reina Doc SAINI-C [address], [place], [address] , [facility] 6 11:57:29 Headache 89214342 Completed 201110/16/2013 RECORDED 12/07/19 12 8:54AM BY MANUEL BUTLER MA, ANNOTATI ON/ADDEN DUM Karlee Serrano MA [facility] 8 09:19:25 Onychia of finger 23809263 Completed 201110/16/2013 RECORDED 12/07/19 12 8:54AM BY MANUEL BUTLER MA, ANNOTATI ON/ADDEN DUM Reina Doc SAIIN-C [address] [facility] [address], [place], [address] , [facility] 6 11:57:29 Disorder of upper respirat ory system Completed 201110/16/2013 RECORDED 12/07/19 12 8:54AM BY MANUEL BUTLER MA, ANNOTPUSHPA ON/ADDEN DUM Reina Doc SAINI-C [address], [place], [address] , [facility] 6 11:57:29 Peripher al venous insuffic iency 07146981 Completed 201110/16/2013 RECORDED 12/07/19 12 8:54AM BY MANUEL BUTLER MA, ANNOTATI ON/ADDEN DUM Reina Doc SAINI-C [address], [place], [address] , [facility] 6 11:57:29 Conjunct ivitis 3000550 Completed 201209/26/2013 RECORDED 03/23/19 13 9:52AM BY MANUEL BUTLER MA, AMANDA ON/ADDEN DUM Reina Doc PA-C [address], [place], [address] , [facility] 6 11:57:29 Hemorrha ge of rectum and anus 566297389 Completed 201209/26/2013 RECORDED 03/23/19 13 9:52AM BY MANUEL BUTLER MA, AMANDA ON/ADDEN DUM Reina Doc SAINI-C [address] [facility] [address], [place], [address] , [facility] 6 11:57:29 Chronic rhinitis 80155215 Completed 201209/26/2013 STORY: STABLE STATUS, CONTINUE CURRENT PLAN.; RECORDED 03/23/19 13 9:52AM BY MANUEL BUTLER MA, AMANDA ON/ADDEN DUM Reina Doc SAINI-C [address] [facility] [address], [place], [address] , [facility] 6 11:57:29 Conjunct ivitis 0634081 Completed 201210/16/2013 RECORDED 03/23/19 13 9:52AM BY MANUEL BUTLER MA, AMANDA ON/ADDEN DUM Reina Doc PA-C [address], [place], [address] , [facility] 6 11:57:29 Hemorrha ge of rectum and anus 900533545 Completed 201210/16/2013 RECORDED 03/23/19 13 9:52AM BY MANUEL BUTLER MA, AMANDA ON/ADDEN DUM Reina Doc PA-C [address], [place], [address] , [facility] 6 11:57:29 Chronic rhinitis 85939903 Completed 201210/16/2013 STORY: STABLE STATUS, CONTINUE CURRENT PLAN.; RECORDED 03/23/19 13 9:52AM BY MANUEL BUTLER MA, ANNOTATI ON/ADDEN DUM Reina Hutson PA-C [address], [place], [address] , [facility] 6 11:57:29 Patient status finding [id number] Completed 201209/26/2013 RECORDED 09/30/19 13 8:31AM BY MANUEL BUTLER MA, ANNOTATI ON/ADDEN DUM Karlee Serrano MA null, [facility] 8 09:19:21 Adult health examinat ion Completed 201209/26/2013 RECORDED 09/30/19 13 8:31AM BY MANUEL BUTLER MA, ANNOTATI ON/ADDEN DUM Karlee Bigchelsie LOMELI null, [facility] 8 09:19:30 Adult health examinat ion Completed 201210/16/2013 RECORDED 09/30/19 13 8:31AM BY MANUEL BUTLER MA, ANNOTATI ON/ADDEN DUM Karlee Bigchelsie LOMELI null, [facility] 8 09:19:30 Disorder of sweat gland 35021998 Completed 201209/26/2013 RECORDED 12/07/19 13 6:59AM BY ALEX ENGLISHATI ON/ADDEN DUM Reina Hutson PA-C [address], [place], [address] , [facility] 6 11:57:29 Malaise and fatigue 668814330 Completed 201209/26/2013 RESOLVED DATE: 12/07/19 13; RECORDED 12/07/19 13 6:59AM BY AMANDA ENGLISH ON/ADDEN DUM Reina Hutson PA-C [address], [place], [address] , [facility] 6 11:57:29 Influenz a vaccine needed [id number] 06 Completed 201209/26/2013 RECORDED 12/07/19 13 8:30AM BY JOCE LOYD MA, OFFICE VISIT Reina Hutson PA-C [address], [place], [address] , [facility] 6 11:57:29 Obstruct megan sleep apnea syndrome 64995273 Completed 201209/26/2013 RECORDED 12/07/19 13 6:59AM BY AMANDA ENGLISH ON/ADDEN DUM Reina SCHUSTERC [address] [facility] [address], [place], [address] , [facility] 6 11:57:29 Disorder of sweat gland 15586993 Completed 201210/16/2013 RECORDED 12/07/19 13 6:59AM BY AMANDA ENGLISH ON/ADDEN DUM Reina SAINI-C [address], [place], [address] , [facility] 6 11:57:29 Malaise and fatigue 058039070 Completed 201210/16/2013 RESOLVED DATE: 12/07/19 13; RECORDED 12/07/19 13 6:59AM BY AMANDA ENGLISH ON/ADDEN DUM Reina SCHUSTERC [address], [place], [address] , [facility] 6 11:57:29 Influenz a vaccine needed 74125840897 06 Completed 201210/16/2013 RECORDED 12/07/19 13 8:30AM BY JOCE LOYD MA, OFFICE VISIT Reina Hutson PA-C [address], [place], [address] , [facility] 6 11:57:29 Allergic rhinitis 12114852 Completed 201309/26/2013 STORY: ZETONA NASAL SPRAY/ ALLERGIS T WILL KYREE Eldridge; RECORDED 03/14/19 14 4:31PM BY MACIE ZAZUETA MA, ANNOTATI ON/ADDEN DUM Reina Doc PA-C [address], [place], [address] , [facility] 6 11:57:29 Edema [id number] Completed 201309/26/2013 STORY: BENIGN VENOUS STASIS; RECORDED 03/14/19 14 4:31PM BY MACIE ZAZUETA MA, ANNOTATI ON/ADDEN DUM Reina Doc SAINI-C [address] [facility] [address], [place], [address] , [facility] 6 11:57:29 Follow-u p encounte r Completed 201309/26/2013 RECORDED 03/14/19 14 4:31PM BY MACIE ZAZUETA MA, ANNOTATI ON/ADDEN DUM Karlee Serrano MA [facility] 8 09:19:40 Erythema tous conditio n Completed 201309/26/2013 RECORDED 03/14/19 14 4:31PM BY MACIE ZAZUETA MA, ANNOTPUSHPA ON/ADDEN DUM Reina SAINI-C [address] [facility] [address], [place], [address] , [facility] 6 11:57:29 Edema [id number] Completed 201310/16/2013 STORY: BENIGN VENOUS STASIS; RECORDED 03/14/19 14 4:31PM BY MACIE ZAZUETA MA, ANNOTATI ON/ADDEN DUM Reina Doc SAINI-C [address], [place], [address] , [facility] 6 11:57:29 Erythema tous conditio n Completed 201310/16/2013 RECORDED 03/14/19 14 4:31PM BY MACIE ZAZUETA MA, ANNOTATI ON/ADDEN DUM Reina Hutson PA-C [address], [place], [address] , [facility] 6 11:57:29 Chronic sinusiti s 75796297 Completed 201309/26/2013 IMPRESSI ON: .; RECORDED 04/25/19 14 10:27AM BY MACIE ZAZUETA MA, ANNOTATI ON/ADDEN DUM Reina Hutson PA-C [address], [place], [address] , [facility] 6 11:57:29 Dermatop hytosis of the body Completed 201309/26/2013 STORY: PERINEUM ; RECORDED 04/25/19 14 10:27AM BY MACIE ZAZUETA MA, AMANDA ON/ADDEN DUM Reina Hutson PA-C [address], [place], [address] , [facility] 6 11:57:29 Chronic sinusiti s 40642708 Completed 201310/16/2013 IMPRESSI ON: .; RECORDED 04/25/19 14 10:27AM BY MACIE ZAZUETA MA, ANNOTATI ON/ADDEN DUM Reina Hutson PA-C [address] [facility] [address], [place], [address] , [facility] 6 11:57:29 Dermatop hytosis of the body Completed 201310/16/2013 STORY: PERINEUM ; RECORDED 04/25/19 14 10:27AM BY MACIE ZAZUETA MA, AMANDA ON/ADDEN DUM Reina Hutson PA-C [address] [facility] [address], [place], [address] , [facility] 6 11:57:29 Follow-u p encounte r Completed 201310/16/2013 RECORDED 07/29/19 14 9:35AM BY MANUEL BUTLER MA, ANNOTATI ON/ADDEN DUM Karlee Serrano MA null, [facility] 8 09:19:40 Hyperpla jethro of prostate [id number] Active 2017 Alecia Ornelas null, [facility] 0 13:32:08 Prostati tis [id number] Completed 201704/05/2018 Peña Hutson PA-C [address], [place], [address] , [facility] 9 09:19:32 Low back pain [id number] Active 2018 Alecia Ornelas null, [place] [facility] 0 13:32:08 Benign prostati c hyperpla jethro without outflow obstruct ion [id number] Completed 201808/17/2024 Rani Allison null, [facility] 5 11:49:04 Seborrhe ic dermatit is 52936448 Active 2018 Alecia Ornelas null, [facility] 0 13:32:08 Severe obesity 01036212882 104 Completed 201807/08/2022 Peña Hutson PA-C [address] [facility] [address], [place], [address] , [facility] 3 11:00:27 Seasonal allergic rhinitis 225055338 Active 2019 Alecia Ornelas null, [facility] 0 13:32:08 Pain of left shoulder joint 86709643782 406452 Active 2019 Alecia Ornelas null, [facility] 0 13:32:08 Vitamin D deficien cy 32761737 Active 2019 Alecia Ornelas null, [facility] 0 13:32:08 Family history of malignan t neoplasm of prostate 915781351 Active 2019 Alecia Ornelas null, [facility] 0 13:32:08 Pain of joint of ankle 949281009 Active 2019 Peña Hutson PA-C [address] [facility] [address], [place], [address] , [facility] 0 09:58:36 Knee pain Active 2019 Peña Hutson PA-C [address] [facility] [address], [place], [address] , [facility] 0 09:58:40 Chronic back pain 829226707 Active 2019 Peña Hutson PA-C [address] [facility] [address], [place], [address] , [facility] 0 09:58:45 Body mass index 40+ - severely obese 124355099 Active 2019 Peña Hutson PA-C [address] [facility] [address], [place], [address] , [facility] 0 09:58:51 COVID-19 [id number] Completed 201905/06/2020 Removal Reason: Problem marked historic al by user pmadden from the COVID-19 watch flag Peña Hutson PA-C [address] [address], [place], [address] , [facility] 1 09:13:18 Prostate specific antigen above referenc e range 305282576 Completed 202008/17/2024 [facility] 5 11:48:54 Crohn's disease 76465403 Active 2020 Peña Hutson PA-C [address] [address], [place], [address] , [facility] 1 14:20:43 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 Peña Hutson PA-C [address] [address], [place], [address] , [facility] 2 11:17:03 Cervical radiculi tis 97975977 Active 2021 Peña Hutson PA-C [address] [facility] [address], [place], [address] , [facility] 2 17:07:39 Lumbosac ral radiculi tis 17752130 Active 2021 Peña Hutson PA-C [address] [facility] [address], [place], [address] , [facility] 2 10:28:48 Edema of lower extremit y 694136271 Active 2022 Peña Hutson PA-C [address] [facility] [address], [place], [address] , [facility] 3 10:44:23 Cellulit is of lower limb 083041242 Active 2022 Peña Hutson PA-C [address] [facility] [address], [place], [address] , [facility] 3 10:44:57 Family history of aneurysm of blood vessel of brain 17392157364 084175 Active 2024 Peña Hutson PA-C [address] [facility] [address], [place], [address] , [facility] 5 12:54:57 Primary erectile dysfunct ion 165165470 Active 2024 Rani portillo [facility] 5 11:20:13 Pain of left heel 86270907819 24545 Active 2024 Rani portillo [facility] 5 11:20:13 Problem Notes None recorded. Procedures Surgical History Date Name Laterality Status Provider Name and Address Organization Details Recorded Time 3 Colonoscopy completed Trudy Sampson [facility] 08/28/2022 15:51:04 0 Appendectomy completed Maryjane Johnston MA [facility] 05/06/2020 08:49:35 Appendectomy completed Karlee Serrano MA [facility] 11/07/2015 10:05:50 Imaging Results None recorded. Procedure [...] 04/15 completed RECORDED 01/27/20 13 11:41AM BY KAILEE ZELAYA, ALEXATI ON/SIMONE DUM; Not Available Not Available Not [...] 11 7:36AM BY LESA HOLBROOK MD, AMANDA ON/ADDEN DUM; Not Available Not Available Not [...] completed RECORDED 04/01/19 13 10:28AM BY AMANDA DANIELS ON/ADDEN DUM; Not Available Not Available Not Available butalbita l-acetami nophen-ca ffeine 50 mg-325 mg-40 mg tablet THREE TIMES DAILY, NEEDED 10/14 completed RECORDED 10/15/19 10 9:05AM BY AMANDA DANIELS ON/ADDEN DUM; Not Available Not Available Not Available meloxicam [...] RECORDED 01/27/20 13 11:40AM BY AMANDA DANIELS ON/ADDANUPAM DUM; Not Available Not Available Not Available [...] RECORDED 04/01/19 13 10:28AM BY AMANDA DANIELS/SIMONE DUM; Not Available Not [...] No t Available Nasonex 50 mcg/actua tion [place] 1 spray every day by nasal route as needed for 90 days. 04/15 completed Not Available Not Available Not Available cefuroxim e axetil 500 mg tablet 07/01 completed Not Available Not Available Not Available polyethyl rodrigo glycol 3350 17 gram/dose oral powder TAKE 238 GM DIRECTED BY GASTROEN TEROLOGY DEPARTME NT AT [facility] 07/08 completed Not Available Not Available Not [...] MOUTH TWICE A DAY FOR 10 DAYS 05/21 /2025 completed Not Available Not Available Not Available [...] Not Available Ciprodex 0.3 %-0.1 % ear drops,[address] 4 DROPS INTO THE RIGHT EAR 2 TIMES A DAY FOR 7 DAYS 05/03 completed Not Available Not Available Not Available Cialis 20 mg tablet Take 1 tablet as needed by oral route for 90 days. 04/05 completed Not Available Not Available Not Available omeprazol e TWO TIMES DAILY 04/21 completed RECORDED 04/21/19 13 12:39PM BY LESA HOLBROOK MD, ANNOTATI ON/ DUM; Not Available Not Available Not Available econazole nitrate TWO TIMES DAILY 05/20 completed RECORDED 05/30/19 14 8:47AM BY LESA HOLBROOK MD, MEDICATI ON AUTO-TORY CTIVATIO N; Not Available Not Available Not Available Guiatuss AT BEDTIME 01/26 completed RECORDED 01/27/20 13 11:41AM BY AMANDA DANIELS ON/ADD DUM;THIS ORDER DISCONTI NUED PER MEDI-SPA N. Not Available Not Available Not Available [...] ANGELA; Not Available Not Available Not Available Antisepti c Skin Cleanser (chlorhex idine) 4 % liquid USE IN SHOWER TO ARMPITS DAILY TOLERATE D DISCONTI NUE IF DRYING active Not Available Not Available No t Available QNASL 80 mcg/actua tion nasal aerosol spray [place] 1 spray every day by nasal route [...] Updated DateTime 5 173.99 cm 41.1 kg/m2 543015. 31 g 72 /min 96 % 98 [degF] 118/74 mm[Hg] Lissett del valle [place] [facility] 5 10:13:52 Social History Question Answer Notes LastModified by Organizat ion Details LastModified Time Tobacco Smoking Status Never Smoker Macie portillo [facility] 04/02/2014 11:01:29 Do You Have An Advance Directive? Yes [email or web address] Information not available 01/08/2022 Is Blood Transfusion [...] Others? With Others (Tessa) And 2 Kids Information not available 01/08/2022 Do You Take [...] Provider Or Emergency Responder? No Works At [employer] Information not available 05/06/2020 To [employer] [facility] [...] available 06/12/2021 Seat Belts Used Routinely Yes [email or web address] Information not available 01/08/2022 Are You Sexually Active? Yes Tessa Information not available 01/21/2024 Smoke Alarm In Home Yes [email or web address] Information not available 01/08/2022 Do You Have [...] independently without assistance or assistive devices? YESWOREST [email or web address] Information not available 01/08/2022 Are you able to care for yourself independently? 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 Never used electronic cigarettes Information not available 01/08/2022 What is your [...] Y Acid Reflux (GERD) Y Headaches/Migraines Y Allergies N GI Problems Y Immunizations Vaccine Type Date Status Note Provider Nam e and Address Organization Details Recorded Time Influenza, split virus, quadrivalent, preservative 8 completed Alecia portillo [facility] 08/29/2019 13:32:03 Influenza, split virus, quadrivalent, PF 6 completed YANI Vickers [facility] 01/08/2022 09:41:18 Influenza, split virus, quadrivalent, PF 0 completed YANI Vickers [facility] 01/08/2022 09:41:18 Tdap 8 completed YANI Vickers [facility] 01/08/2022 09:41:18 Influenza, split virus, quadrivalent, PF 9 completed YANI Vickers [facility] 01/08/2022 09:41:19 Td (adult), 2 Lf tetanus toxoid, preservative free, adsorbed 7 completed Aleciaanastacio portillo [facility] 08/29/2019 13:32:03 Tdap 7 completed Aleciaanastacio portillo [facility] 08/29/2019 13:32:03 Influenza, split virus, trivalent, preservative 0 completed Alecia portillo [facility] 08/29/2019 13:32:03 Influenza, split virus, trivalent, preservative 1 completed Alecia Ornelas null, [facility] 08/29/2019 13:32:03 influenza, seasonal, intradermal, preservative free 2 completed Alecia Ornelas null, [facility] 08/29/2019 13:32:03 influenza, seasonal, intradermal, preservative free 3 completed Alecia Ornelas null, [facility] 08/29/2019 13:32:03 Td (adult), 2 Lf tetanus toxoid, preservative free, adsorbed 3 completed Alecia Ornelas null, [facility] 08/29/2019 13:32:03 Past Encounters Encounter ID Performer Location Encounter Start Date Encounter Closed Date Diagnosis/Indication Diagnosis SNOMED-CT Code Diagnosis ICD10 Code Diagnosis IMO Codes Diagnosis Note [id number] Austin Rios MD Main Office [address] [facility] [address] [place] [address] 02/06/2025 09:50:06 02/06/2025 11:04:15 Prediabetes 978721903 R73.03 strongly rec. less sugar intake / low carb diet (less ice cream, pastries, soda, juice, candy, bagels, cereal, bread, pasta, etc) and increased aerobic exercise to help with weight loss 11.23 - stable a1c at 5.6 down from 5.8 a few years ago 6.25 -a1c stable at 5.7%, active job, rec diet above 12.25 - pending labs from earlier today Crohn's disease 67226796 K50.90 stable - cont med as dir, cont f/u c GI yrly 12.25 - see below - pending see gi next week - ? needs updated egd/colon* will fwd copy of this ov note and studies to gi* Epigastric pain 53573196 R10.13 12708 ? d/t underlying constipati on (overflow diarrhea) d/t bloating, as well as early satiety/be lchingchec k axr to r/o constipati on - see below Gastroesop hageal reflux disease 388376690 K21.9 15431270 neg egd remotely as per pt, cont ppi as dir 12.25 - stable, cont ppi qd as dir Early satiety 948668051 R68.81 504420 check ugis c cc: gi Acute constipation 9006 K59.00 662001 ? if this is contributi ng to [...] by Organization Details LastModified Time None Recorded Payers Encounter Date Sequence Insurance Name Policy Number Policy Tong Covered Member ID Tong Member ID Guarantor Name 02/06/2025 1 [facility] ([facility] [id number] Myles Zhu [id number] Myles Zhu Notes Date Note Type Note Provider Name and Address Organization Details Recorded Time 02/06/2025 text/html here for 6 month f/u visitlabs done just earlier today - pending c/o past week of early satiety - not on glp1 - but this epigastric fullness is intermittent - fades away after few hoursno constipation as per ptave bm 2-3 times/day - small amount, loose+ belching, bloatingno n/v, brbpr, htbntakes magnesium qd+ h/o crohn'spending see gi next wk - [place] [facility] colon 6.23, last egd 4.21had nl tsh 5.6.25 Peña Hutson PA-C [address] [address], [place], [address], [facility] 02/06/2025 11:04:50
== END 2025-02-14 09:00 | disposition home or self-care (01) ==
LOC: HO.HGI 07:45
PROVIDERS: PCP Physician Assistant Medical; Visit Provider Nurse Practitioner Family
DX: K50.10 Crohn's disease of large intestine without complications (principal); K29.70 Gastritis, unspecified, without bleeding
CPT/HCPCS: 99214